=== PATIENT | female | born 1940 | race Caucasian/White ===

== ENCOUNTER 2016-06-13 06:36 | Emergency (ER) | payer MEDICARE, BC ==
[2016-06-13 06:48] VITALS: BP 113/57; PULSE 69; RESP 18; TEMP 97.4
--- NOTE | 2016-06-13 07:53 | ED ---
General Adult HPI - General Chief complaint: Wound/Laceration Stated complaint: left foot injury Time Seen by Provider: 06/13/16 07:30 Source: patient, RN notes reviewed, old records reviewed Mode of arrival: wheelchair Limitations: no limitations - History of Present Illness Initial comments: This is a 76-year-old female year for evaluation of bleeding from foot. Patient getting off top of her left foot. She states she did sustain an injury to her left foot minor laceration 2 days ago, no bleeding until she woke this morning and noticed bleeding in her bed and then it was bleeding on her floor when she was walking to the bathroom. She feels not lightheaded or dizzy not weak. No loss of consciousness. Patient not currently on blood thinners, tetanus is up-to-date - Related Data Home Medications Medication Instructions Recorded Confirmed Atorvastatin Calcium [Lipitor] 20 mg PO SUTUTHSA 07/15/14 06/13/16 Cholecalciferol [Vitamin D3] 1,000 unit PO DAILY 07/15/14 06/13/16 Furosemide [Lasix] 40 mg PO DAILY 07/15/14 06/13/16 Gabapentin [Neurontin] 300 mg PO BID 07/15/14 06/13/16 Insulin Aspart [NovoLOG] 10 - 20 unit SQ AC-TID 07/15/14 06/13/16 Meclizine [Antivert] 12.5 mg PO BID 07/15/14 06/13/16 Montelukast [Singulair] 10 mg PO DAILY 07/15/14 06/13/16 Nortriptyline HCl [Pamelor] 10 mg PO BID 07/15/14 06/13/16 [place]-3 Fatty Acids/Fish Oil [Fish 1 cap PO BID 07/15/14 06/13/16 Oil 1,000 mg Softgel] Ubidecarenone [Co Q-10] 100 mg PO SUTUTHSA 07/15/14 06/13/16 Vit A,C & E/Lutein/Minerals 1 tab PO BID 07/15/14 06/13/16 [Ocuvite with Lutein Tablet] Warfarin [Coumadin] 5 mg PO SUWE 07/15/14 06/13/16 Hydrocodone/Acetaminophen [[place] 1 tab PO Q6HR PRN 09/20/15 06/13/16 5-325] Folic Acid 0.4 mg PO DAILY 09/21/15 06/13/16 Omeprazole [PriLOSEC] 20 mg PO DAILY 09/21/15 06/13/16 Pepto-Bismol Tab 1 tab PO DAILY 09/21/15 06/13/16 Warfarin Sodium 7.5 mg PO MOTUTHFRSA 09/21/15 06/13/16 cloNIDine HCL [Clonidine HCl] 0.2 mg PO BID 09/21/15 06/13/16 cloNIDine HCL [Catapres] 0.2 mg PO BID 06/13/16 06/13/16 Allergies Allergy/AdvReac Type Severity Reaction Status Date / Time Tetanus Vaccines and Toxoid Allergy Unknown Verified 09/21/15 07:18 [Tetanus Vaccines & Toxoid] Childhood hydromorphone HCl AdvReac Hallucinati Verified 09/21/15 07:18 [From Dilaudid] ons metformin AdvReac Nausea Verified 09/21/15 07:18 Review of Systems ROS Statement: Those systems with pertinent positive or pertinent negative responses have been documented in the HPI. ROS Other: All systems not noted in ROS Statement are negative. Past Medical History Past Medical History: Chest Pain / Angina, Diabetes Mellitus, GERD/Reflux, Hyperlipidemia, Myocardial Infarction ([place]) Last Myocardial Infarction Date:: 2000 History of Any Multi-Drug Resistant Organisms: None Reported Past Surgical History: Heart Catheterization With Stent, Hysterectomy, Orthopedic Surgery, Pacemaker Additional Past Surgical History / Comment(s): knee replacements, partial thyroid removed. vein stripping on left leg, torn roatator cuff, left hand surgery Past Anesthesia/Blood Transfusion Reactions: No Reported Reaction Date of Last Stent Placement:: 2010 Type of Cardiac Device: Unknown Device Placement Date:: 2011 Past Psychological History: No Psychological Hx Reported Smoking Status: Former smoker Past Alcohol Use History: Rare Past Drug Use History: None Reported - Past Family History Sister(s) Additional Family Medical History / Comment(s): lung CA Father Family Medical History: Myocardial Infarction ([place]) Mother Family Medical History: Congestive Heart Failure (CHF) General Exam - General Exam Comments Initial Comments: Minimal bleeding from anterior left foot, upon initial ER evaluation, and is placed in bleeding had stopped Limitations: no limitations General appearance: alert, in no apparent distress Head exam: Present: atraumatic, normocephalic, normal inspection Eye exam: Present: normal appearance, PERRL, EOMI. Absent: scleral icterus, conjunctival injection, periorbital swelling ENT exam: Present: normal exam, mucous membranes moist Neck exam: Present: normal inspection. Absent: tenderness, meningismus, lymphadenopathy Respiratory exam: Present: normal lung sounds bilaterally. Absent: respiratory distress, wheezes, rales, rhonchi, stridor Cardiovascular Exam: Present: regular rate, normal rhythm, normal heart sounds. Absent: systolic murmur, diastolic murmur, rubs, gallop, clicks GI/Abdominal exam: Present: soft, normal bowel sounds. Absent: distended, tenderness, guarding, rebound, rigid Extremities exam: Present: normal inspection, full ROM, normal capillary refill. Absent: tenderness, pedal edema, joint swelling, calf tenderness Back exam: Present: normal inspection Neurological exam: Present: alert, oriented X3, CN II-XII intact Psychiatric exam: Present: normal affect, normal mood Skin exam: Present: warm, dry, intact, normal color. Absent: rash Course Vital Signs 06/13/16 06:46 Temperature 97.4 F L Pulse Rate 69 Respiratory 18 Rate Blood Pressure 113/57 O2 Sat by Pulse 94 L Oximetry Medical Decision Making - Medical Decision Making 76 female here for evaluation, patient presents here for evaluation of wound to left foot, bandages placed with no bleeding, patient can be discharged home Disposition Clinical Impression: Laceration, Unspecified open wound, left foot, initial encounter Disposition: HOME SELF-CARE Condition: Good Instructions: Acute Wound Care (ED) Referrals: Kiet Taveras MD [Primary Care Provider] - 1-2 days
== END 2016-06-13 08:42 | disposition home or self-care (01) ==
LOC: EC 06:36
DX: S91.312A Laceration without foreign body, left foot, initial encounter (principal); X58.XXXA Exposure to other specified factors, initial encounter; Z79.899 Other long term (current) drug therapy; Z79.4 Long term (current) use of insulin; Z88.5 Allergy status to narcotic agent; Z88.7 Allergy status to serum and vaccine; Z88.8 Allergy status to other drugs, medicaments and biological substances; E11.9 Type 2 diabetes mellitus without complications; K21.9 Gastro-esophageal reflux disease without esophagitis; E78.5 Hyperlipidemia, unspecified; Z87.891 Personal history of nicotine dependence
CPT/HCPCS: 99283

== ENCOUNTER 2016-12-28 09:59 | Emergency (ER) | payer MEDICARE, BC ==
[2016-12-28] MEDS ORDERED: SODIUM CHLORIDE 0.9% 1,000 ML IV STA ×2 (10:11)
--- NOTE | 2016-12-28 10:20 | ED ---
Dizziness HPI - General Chief Complaint: Dizziness Stated Complaint: Dizziness Time Seen by Provider: 12/28/16 10:00 Source: patient, EMS, RN notes reviewed Mode of arrival: EMS Limitations: no limitations - History of Present Illness Initial Comments: This is a 76-year-old female was brought in by EMS with complaints of difficulty walking feeling wobbly. She states she was eating breakfast drinking coffee when she tries get up and she felt off balance. He denies any headache fevers chills nausea vomiting sweats focal weakness. She was brought in by EMS. She on arrival demonstrated a blood pressure 95/58 MD Complaint: dizziness, difficulty walking - Related Data Home Medications Medication Instructions Recorded Confirmed Atorvastatin Calcium [Lipitor] 20 mg PO HS 07/15/14 12/28/16 Cholecalciferol [Vitamin D3] 3,000 unit PO DAILY 07/15/14 12/28/16 Furosemide [Lasix] 40 mg PO DAILY 07/15/14 12/28/16 Gabapentin [Neurontin] 300 mg PO BID 07/15/14 12/28/16 Insulin Aspart [NovoLOG] 30 unit SQ AC-TID 07/15/14 12/28/16 Meclizine [Antivert] 12.5 mg PO BID 07/15/14 12/28/16 Montelukast [Singulair] 10 mg PO DAILY 07/15/14 12/28/16 Nortriptyline HCl [Pamelor] 10 mg PO BID 07/15/14 12/28/16 [place]-3 Fatty Acids/Fish Oil [Fish 1 cap PO BID 07/15/14 12/28/16 Oil 1,000 mg Softgel] Ubidecarenone [Co Q-10] 100 mg PO DAILY 07/15/14 12/28/16 Vits A,C,E/Lutein/Minerals 1 tab PO BID 07/15/14 12/28/16 [Ocuvite with Lutein Tablet] Warfarin [Coumadin] 7.5 mg PO SUMOWETHFRSA 07/15/14 12/28/16 Hydrocodone/Acetaminophen [[place] 1 tab PO Q6HR PRN 09/20/15 12/28/16 5-325] Warfarin Sodium 10 mg PO TU 09/21/15 12/28/16 cloNIDine HCL [Catapres] 0.2 mg PO BID 06/13/16 12/28/16 Insulin Glargine [Lantus] 60 unit SQ HS 12/28/16 12/28/16 Oxybutynin Chloride [Ditropan] 5 mg PO BID 12/28/16 12/28/16 amLODIPine [Norvasc] 2.5 mg PO DAILY 12/28/16 12/28/16 Allergies Allergy/AdvReac Type Severity Reaction Status Date / Time Tetanus Vaccines and Toxoid Allergy Unknown Verified 12/28/16 10:36 [Tetanus Vaccines & Toxoid] Childhood hydromorphone HCl AdvReac Hallucinati Verified 12/28/16 10:36 [From Dilaudid] ons metformin AdvReac Nausea Verified 12/28/16 10:36 Review of Systems ROS Statement: Those systems with pertinent positive or pertinent negative responses have been documented in the HPI. ROS Other: All systems not noted in ROS Statement are negative. Past Medical History Past Medical History: Chest Pain / Angina, Diabetes Mellitus, GERD/Reflux, Hyperlipidemia, Myocardial Infarction ([place]) Additional Past Medical History / Comment(s): macular degeneration Last Myocardial Infarction Date:: 2000 History of Any Multi-Drug Resistant Organisms: None Reported Past Surgical History: Heart Catheterization With Stent, Hysterectomy, Orthopedic Surgery, Pacemaker Additional Past Surgical History / Comment(s): knee replacements, partial thyroid removed. vein stripping on left leg, torn roatator cuff, left hand surgery Past Anesthesia/Blood Transfusion Reactions: No Reported Reaction Date of Last Stent Placement:: 2010 Type of Cardiac Device: Unknown Device Placement Date:: 2011 Past Psychological History: No Psychological Hx Reported Smoking Status: Former smoker - Past Family History Sister(s) Additional Family Medical History / Comment(s): lung CA Father Family Medical History: Myocardial Infarction ([place]) Mother Family Medical History: Congestive Heart Failure (CHF) General Exam - General Exam Comments Initial Comments: This a well-developed well-nourished awake alert oriented history female Limitations: no limitations General appearance: alert, in no apparent distress Head exam: Present: atraumatic, normocephalic, normal inspection Eye exam: Present: normal appearance, PERRL, EOMI. Absent: scleral icterus, conjunctival injection, periorbital swelling ENT exam: Present: mucous membranes dry Neck exam: Present: normal inspection. Absent: tenderness, meningismus, lymphadenopathy Respiratory exam: Present: normal lung sounds bilaterally. Absent: respiratory distress, wheezes, rales, rhonchi, stridor Cardiovascular Exam: Present: regular rate, normal rhythm, normal heart sounds. Absent: systolic murmur, diastolic murmur, rubs, gallop, clicks GI/Abdominal exam: Present: soft, normal bowel sounds. Absent: distended, tenderness, guarding, rebound, rigid Extremities exam: Present: normal inspection, full ROM, normal capillary refill. Absent: tenderness, pedal edema, joint swelling, calf tenderness Back exam: Present: normal inspection Neurological exam: Present: alert, oriented X3, CN II-XII intact Psychiatric exam: Present: normal affect, normal mood Skin exam: Present: warm, dry, intact, normal color. Absent: rash Course Vital Signs 12/28/16 12/28/16 12/28/16 10:01 11:32 12:00 Temperature 97.1 F L Pulse Rate 72 49 L 68 Respiratory 20 18 18 Rate Blood Pressure 95/58 114/55 113/59 O2 Sat by Pulse 98 93 L 97 Oximetry 12/28/16 13:24 Temperature 97.0 F L Pulse Rate 57 L Respiratory 18 Rate Blood Pressure 103/53 O2 Sat by Pulse 96 Oximetry EKG Findings - EKG Results: EKG: interpreted by ERMD (Atrial paced rhythm rate was 62 [place] interval 2:30 QRS duration 102 QT/QTC of 390/[address]-T wave changes) Medical Decision Making - Medical Decision Making The patient is showing improved and ambulatory without difficulty. I did discuss findings with her and her family. Patient already is on Antivert with twice a day she'll be increased to 3 times a day. She is follow-up with her doctor and return when necessary the presentation is consistent with vertigo. - Lab Data Result diagrams: 12/28/16 10:17 12/28/16 10:17 Lab Results 12/28/16 12/28/16 12/28/16 Range/Units 10: 10: 10: WBC 4.4 (3.8-10.6) k/uL RBC 3.60 L (3.80-5.40) m/uL Hgb 11.4 (11.4-16.0) gm/dL Hct 33.8 L (34.0-46.0) % MCV 93.7 (80.0-100.0) fL MCH 31.8 (25.0-35.0) pg MCHC 33.9 (31.0-37.0) g/dL RDW 13.7 (11.5-15.5) % Plt Count 68 L (150-450) k/uL Neutrophils % 73 % Lymphocytes % 19 % Monocytes % 5 % Eosinophils % 2 % Basophils % 0 % Neutrophils # 3.2 (1.3-7.7) k/uL Lymphocytes # 0.8 L (1.0-4.8) k/uL Monocytes # 0.2 (0-1.0) k/uL Eosinophils # 0.1 (0-0.7) k/uL Basophils # 0.0 (0-0.2) k/uL Sodium 139 (137-145) mmol/L Potassium 5.1 (3.5-5.1) mmol/L Chloride 104 (98-107) mmol/L Carbon Dioxide 25 (22-30) mmol/L Anion Gap 10 mmol/L BUN 34 H (7-17) mg/dL Creatinine 1.20 H (0.52-1.04) mg/dL Est GFR (MDRD) Af Amer 53 (>60 ml/min/1.73 sqM) Est GFR (MDRD) Non-Af 44 (>60 ml/min/1.73 sqM) Glucose 54 L (74-99) mg/dL POC Glucose (mg/dL) (75-99) mg/dL POC Glu Data Miner ID Calcium 9.6 (8.4-10.2) mg/dL Magnesium 2.0 (1.6-2.3) mg/dL Total Bilirubin 1.1 (0.2-1.3) mg/dL AST 48 H (14-36) U/L ALT 43 (9-52) U/L Alkaline Phosphatase 54 (38-126) U/L Total Creatine Kinase 125 (30-135) U/L CK-MB (CK-2) 1.2 (0.0-2.4) ng/mL CK-MB (CK-2) Rel Index 1.0 Total Protein 6.7 (6.3-8.2) g/dL Albumin 4.1 (3.5-5.0) g/dL Urine Color Urine Appearance (Clear) Urine pH (5.0-8.0) Ur Specific [place] (1.001-1.035) Urine Protein (Negative) Urine Glucose (UA) (Negative) Urine Ketones (Negative) Urine Blood (Negative) Urine Nitrite (Negative) Urine Bilirubin (Negative) Urine Urobilinogen (<2.0) mg/dL Ur Leukocyte Esterase (Negative) Urine WBC (0-5) /hpf Ur Squamous Epith Cells (0-4) /hpf Urine Bacteria (None) /hpf Hyaline Casts (0-2) /lpf Urine Mucus (None) /hpf 12/28/16 12/28/16 12/28/16 Range/Units 12:08 13:27 14:00 WBC (3.8-10.6) k/uL RBC (3.80-5.40) m/uL Hgb (11.4-16.0) gm/dL Hct (34.0-46.0) % MCV (80.0-100.0) fL MCH (25.0-35.0) pg MCHC (31.0-37.0) g/dL RDW (11.5-15.5) % Plt Count (150-450) k/uL Neutrophils % % Lymphocytes % % Monocytes % % Eosinophils % % Basophils % % Neutrophils # (1.3-7.7) k/uL Lymphocytes # (1.0-4.8) k/uL Monocytes # (0-1.0) k/uL Eosinophils # (0-0.7) k/uL Basophils # (0-0.2) k/uL Sodium (137-145) mmol/L Potassium (3.5-5.1) mmol/L Chloride (98-107) mmol/L Carbon Dioxide (22-30) mmol/L Anion Gap mmol/L BUN (7-17) mg/dL Creatinine (0.52-1.04) mg/dL Est GFR (MDRD) Af Amer (>60 ml/min/1.73 sqM) Est GFR (MDRD) Non-Af (>60 ml/min/1.73 sqM) Glucose (74-99) mg/dL POC Glucose (mg/dL) 64 L 170 H (75-99) mg/dL POC Glu Data Miner Sandra Doss Nicole Calcium (8.4-10.2) mg/dL Magnesium (1.6-2.3) mg/dL Total Bilirubin (0.2-1.3) mg/dL AST (14-36) U/L ALT (9-52) U/L Alkaline Phosphatase (38-126) U/L Total Creatine Kinase (30-135) U/L CK-MB (CK-2) (0.0-2.4) ng/mL CK-MB (CK-2) Rel Index Total Protein (6.3-8.2) g/dL Albumin (3.5-5.0) g/dL Urine Color Yellow Urine Appearance Clear (Clear) Urine pH 5.5 (5.0-8.0) Ur Specific [place] 1.013 (1.001-1.035) Urine Protein Negative (Negative) Urine Glucose (UA) Negative (Negative) Urine Ketones Negative (Negative) Urine Blood Negative (Negative) Urine Nitrite Negative (Negative) Urine Bilirubin Negative (Negative) Urine Urobilinogen <2.0 (<2.0) mg/dL Ur Leukocyte Esterase Small H (Negative) Urine WBC 1 (0-5) /hpf Ur Squamous Epith Cells <1 (0-4) /hpf Urine Bacteria Rare H (None) /hpf Hyaline Casts 7 H (0-2) /lpf Urine Mucus Rare H (None) /hpf - Radiology Data Radiology results: report reviewed (I did review the imaging and reports no acute findings.), image reviewed Disposition Clinical Impression: Vertigo Disposition: HOME SELF-CARE Condition: Good Instructions: Dizziness (ED) Additional Instructions: Increase your Antivert 3 times a day and follow-up with Dr. Taveras. Referrals: Kiet Taveras MD [Primary Care Provider] - 1-2 days
[2016-12-28 10:44] LABS: Calcium 9.6 mg/dL (8.4-10.2); Total Bilirubin 1.1 mg/dL (0.2-1.3); Total Protein 6.7 g/dL (6.3-8.2)
[2016-12-28 10:46] LABS: Basophils % (A) 0 %; CHCM 33.3; Eosinophils # (A) 0.1 k/uL (0-0.7); Eosinophils % (A) 2 %; HCT 33.8 % (34.0-46.0); HDW 2.66; HGB 11.4 gm/dL (11.4-16.0); Luc # (Auto) 0.05; Luc % (Auto) 1; Lymphocytes # (A) 0.8 k/uL (1.0-4.8); Lymphocytes % (A) 19 %; MCH 31.8 pg (25.0-35.0); MCHC 33.9 g/dL (31.0-37.0); MCV 93.7 fL (80.0-100.0); Mean Platelet Volume 10.9; Monocytes # (A) 0.2 k/uL (0-1.0); Monocytes % (A) 5 %; Neutrophils # (A) 3.2 k/uL (1.3-7.7); Neutrophils % (A) 73 %; RDW 13.7 % (11.5-15.5); WBC 4.4 k/uL (3.8-10.6); WBC (Perox) 4.44
[2016-12-28 10:50] LABS: Potassium 5.1 mmol/L (3.5-5.1)
[2016-12-28 11:07] LABS: Creatine Kinase MB 1.2 ng/mL (0.0-2.4)
[2016-12-28 11:33] VITALS: RESP 18
--- NOTE | 2016-12-28 11:37 | XR ---
EXAMINATION TYPE: XR chest 2V DATE OF EXAM: 12/28/2016 COMPARISON: 09/20/2015 HISTORY: 76-year-old female with cough TECHNIQUE: PA and lateral views FINDINGS: Left anterior chest wall pacemaker generator with right atrial and right ventricular leads. The heart is upper limits of normal in size. Peribronchial cuffing and mild diffuse interstitial prominence, s imilar to prior exam. No consolidation or pleural effusion. IMPRESSION: Chronic changes, possible chronic bronchitis/asthma. No acute change seen.
[2016-12-28] MEDS ORDERED: MECLIZINE 12.5 MG TAB PO STA (12:10)
[2016-12-28 12:13] LABS: Glucose,Whole Blood 64 mg/dL (75-99)
[2016-12-28 13:25] VITALS: TEMP 97
[2016-12-28 13:30] LABS: Glucose,Whole Blood 170 mg/dL (75-99)
[2016-12-28 14:23] LABS: Appearance,Urine Clear (Clear); Bacteria,Urine Rare /hpf; Bilirubin,Urine Negative (Negative); Glucose,Urine (UA) Negative (Negative); Ketones,Urine Negative (Negative); Leukocyte Esterase,Urine Small (Negative); Mucus,Urine Rare /hpf; Nitrite,Urine Negative (Negative); PH, Urine 5.5 (5.0-8.0); Particle Count 2571; Protein,Urine Negative (Negative); Specific Gravity,Urine 1.013 (1.001-1.035); Squamous Epithelial Cell,Urine <1 /hpf (0-4); UA Billing (MACRO vs. MICRO) MICRO; Urobilinogen,Urine <2.0 mg/dL (<2.0); WBC,Urine 1 /hpf (0-5)
[2016-12-28 14:52] VITALS: BP 127/60; PULSE 67
== END 2016-12-28 14:56 | disposition home or self-care (01) ==
LOC: EC 09:59
DX: R42 Dizziness and giddiness (principal); E11.9 Type 2 diabetes mellitus without complications; E78.5 Hyperlipidemia, unspecified; I25.2 Old myocardial infarction; Z95.5 Presence of coronary angioplasty implant and graft; Z95.0 Presence of cardiac pacemaker; Z87.891 Personal history of nicotine dependence; Z79.4 Long term (current) use of insulin; Z79.01 Long term (current) use of anticoagulants; Z79.899 Other long term (current) drug therapy; Z88.7 Allergy status to serum and vaccine; Z88.5 Allergy status to narcotic agent; Z88.8 Allergy status to other drugs, medicaments and biological substances
CPT/HCPCS: 36415; 71020; 80053; 81001; 82550; 82553; 83735; 85025; 93005; 96360; 96361; 99284

== ENCOUNTER → 2017-03-01 | Outpatient (CLI) | payer MEDICARE, BC ==
--- NOTE | 2017-03-03 09:50 | MM ---
Reason for exam: screening (asymptomatic). Last mammogram was performed 2 years and 7 months ago. History: Patient is postmenopausal. Family history of breast cancer in maternal cousin at age 40. Took estrogen for 8 years beginning at age 45. Took progesterone for 8 years beginning at age 45. Physical Findings: A clinical breast exam by your physician is recommended on an annual basis and results should be correlated with mammographic findings. MG 3D Screening Mammo W/Cad Bilateral CC and MLO view(s) were taken. Prior study comparison: July 31, 2014, bilateral MG diagnostic mammo w CAD [facility]. November 12, 2013, bilateral MG screening mammo w CAD. The breast tissue is heterogeneously dense. This may lower the sensitivity of mammography. Pacemaker generator on the left breast. Scattered benign secretory, vascular and oil cysts calcifications. No significant changes when compared with prior studies. ASSESSMENT: Negative, BI-RAD 1 RECOMMENDATION: Routine screening mammogram of both breasts in 1 year.
== END | disposition home or self-care (01) ==
LOC: RADMAMWWP 11:26
PROVIDERS: ATTEND Internal Medicine Geriatric Medicine
DX: Z12.31 Encounter for screening mammogram for malignant neoplasm of breast (principal)
CPT/HCPCS: 77063; G0202

== ENCOUNTER → 2018-08-14 | Outpatient (CLI) | payer MEDICARE, BC ==
[2018-08-14 12:28] LABS: Potassium 5.3 mmol/L (3.5-5.1)
[2018-08-14 12:37] LABS: HCT 40.7 % (34.0-46.0); HGB 13.4 gm/dL (11.4-16.0); MCH 30.6 pg (25.0-35.0); MCHC 32.9 g/dL (31.0-37.0); MCV 92.9 fL (80.0-100.0); Mean Platelet Volume 9.2; Platelet Count 162 k/uL (150-450); RBC 4.38 m/uL (3.80-5.40); RDW 14.4 % (11.5-15.5); WBC 5.2 k/uL (3.8-10.6)
== END | disposition home or self-care (01) ==
LOC: LABWHC1 11:05
PROVIDERS: ATTEND Internal Medicine Interventional Cardiology
DX: Z01.812 Encounter for preprocedural laboratory examination (principal); I10 Essential (primary) hypertension; I73.9 Peripheral vascular disease, unspecified
CPT/HCPCS: 36415; 80051; 82565; 84520; 85027

== ENCOUNTER 2018-08-15 11:37 | Day surgery (SDC) | payer MEDICARE, BC ==
[2018-08-07 13:08] VITALS: BMI 36.6
[~2018-08-15 11:37] MED LIST: SODIUM CHLORIDE 0.9% 1,000 ML in EMPTY BAG 1 BAG IV ONE
[2018-08-15 12:26] LABS: Glucose,Whole Blood 259 mg/dL (75-99)
[2018-08-15] MEDS ORDERED: INSULIN ASPART (NovoLOG) 100 UNIT/ML VIAL SQ ONE (12:42)
[2018-08-15] MEDS ORDERED: MIDAZOLAM (PF) 2 MG/2 ML VIAL IV ONE (13:08)
[2018-08-15] MEDS ORDERED: LIDOCAINE 1% INJ 10MG/ML (20 ML MDV) SQ ONE (17:40)
[2018-08-15] MEDS ORDERED: fentaNYL (PF) 50 MCG/ML 2 ML AMP IV ONE (17:40)
[2018-08-15] MEDS ORDERED: MIDAZOLAM 2 MG/2 ML VIAL IV ONE (17:42)
[2018-08-15] MEDS ORDERED: IV FLUID CONTINUATION 800 ML IV ONE (17:43)
[2018-08-15] MEDS ORDERED: IOPAMIDOL-250 100ML BTL INTRAARTER ONE (17:50)
[2018-08-15] MEDS ORDERED: IOPAMIDOL-250 50ML BTL INTRAARTER ONE (17:50)
[2018-08-15] MEDS ORDERED: SODIUM CHLORIDE 0.9% 1,000 ML IV SCH (18:15)
[2018-08-15 19:57] LABS: INR 1.1 (<1.2); Prothrombin Time 11.3 sec (9.0-12.0)
[2018-08-15] MEDS ORDERED: WARFARIN 10 MG TAB PO SCH (20:00)
[2018-08-15] MEDS: NORTRIPTYLINE 10 MG CAP PO SCH (20:13)
[2018-08-15] MEDS: METOPROLOL TARTRATE 50 MG TAB PO SCH (20:13)
[2018-08-15 20:26] LABS: Glucose,Whole Blood 149 mg/dL (75-99)
[2018-08-15] MEDS ORDERED: NON-FORMULARY DRUG (Omega-3 Fatty Acids/Fish Oil [Fish Oil 1,000 Mg Softgel] 1 CAP) PO SCH (21:00)
[2018-08-15] MEDS ORDERED: ATORVASTATIN 20 MG TAB PO SCH (21:00)
[2018-08-15] MEDS ORDERED: GABAPENTIN 300 MG CAP PO SCH (21:00)
[2018-08-15] MEDS: INSULIN ASPART (NovoLOG) 100 UNIT/ML VIAL SQ SCH (21:16)
--- NOTE | 2018-08-15 21:58 | LTR ---
DATE OF SERVICE: August 15, 2018. Dear Dr. Taveras: Ms. Rebecca Abreu was experiencing bilateral lower extremities per intermittent claudication and underwent an abdominal aortogram and bilateral lower extremities runoff which revealed severe disease involving bilateral femoral arteries. She is going to be discharged home today and she will be scheduled to undergo a WINDING MACHINE OPERATOR of right and left SFA. I want to thank you for allowing us to participate in her care and please do not hesitate to call if you have any question or concerns. Sincerely, MD ASHLEY Keating / JAVIER: [id number] /
--- NOTE | 2018-08-15 23:16 | AN ---
ANGIOGRAPHY REPORT DATE OF SERVICE: August 15, 2018 PERFORMING PHYSICIAN: Jack Black MD, experimental mechanic. PROCEDURE PERFORMED: 1. An abdominal aortogram. 2. Bilateral lower extremities runoff. INDICATION: This is a 78-year-old female patient with history of hypertension and dyslipidemia who was experiencing bilateral lower extremity intermittent claudication, severe enough and interfering with her daily activities. Because of that an abdominal aortogram and bilateral lower extremity runoff was advised. APPROACH: Left common femoral artery. COMPLICATION: None. LEVEL OF SEDATION: Moderate with sedation length of 12 minutes. PROCEDURE DESCRIPTION: After obtaining an informed consent, the patient was brought to the cardiac labor relations director. The left common femoral artery was cannulated using micropuncture technique, the micropuncture wire passed easily then I placed a 5-Kazakh sheath in the left common femoral artery. After that, I did an abdominal aortogram and bilateral lower extremity runoff using 5- Kazakh pigtail catheter which was initially placed at the level of the renal arteries then it was pulled into above the bifurcation of the aorta to right and left common iliac arteries. The procedure was completed without any complication. SELECTIVE PERIPHERAL ANGIOGRAM: 1. The aorta appeared to be calcified with mild disease only. 2. Common iliac arteries are calcified with mild disease only. 3. Internal iliac arteries: The right and left internal iliac arteries are patent. 4. External iliac arteries: The right and left external iliac arteries are normal. 5. Common femoral arteries: The right and left common femoral arteries are patent. 6. Profunda: Both profunda are patent. 7. SFA: Both SFA appeared to be severely diseased in the range of 70-80 percent in the midportion. 8. Popliteal: The right popliteal has a tight lesion appeared to be in the range of 80% and the left popliteal appeared to have mild disease only. 9. Below the knee: There are 2 vessel runoff below the knee with posterior tibial and peroneal. CONCLUSION: 1. Tortuous aortoiliac segments without any obstructive disease. 2. 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 3. Two vessel runoff below the knee bilaterally with posterior tibial and peroneal. POSTPROCEDURE MANAGEMENT: Atherectomy and [place] PREP TEACHER of the right and left SFA to be done in 2 separate sessions. I would consider the procedure to be performed in ipsilateral antegrade technique. MMODL / IJN: [id number] /
[2018-08-16 06:47] LABS: Glucose,Whole Blood 246 mg/dL (75-99)
[2018-08-16 07:49] VITALS: BP 151/65; PULSE 55; RESP 18; TEMP 97.9
[2018-08-16] MEDS: INSULIN ASPART (NovoLOG) 100 UNIT/ML VIAL SQ SCH (07:57)
[2018-08-16] MEDS: NORTRIPTYLINE 10 MG CAP PO SCH (07:58)
[2018-08-16] MEDS: METOPROLOL TARTRATE 50 MG TAB PO SCH (07:58)
--- NOTE | 2018-08-16 08:12 | DS ---
DISCHARGE SUMMARY ADMISSION DATE: August 15, 2018 DISCHARGE DATE: August 16, 2018 BRIEF HISTORY: This is a 78-year-old female patient who was admitted to the hospital yesterday and underwent an abdominal aortogram and bilateral lower extremities runoff, which revealed severe bilateral SFA disease. The patient was kept overnight because the procedure was performed late during the day. She is going to be discharged home. ASHLEY / JAVIER: [id number] /
[2018-08-16] MEDS ORDERED: MONTELUKAST 10 MG TAB PO SCH (09:00)
[2018-08-16] MEDS ORDERED: ISOSORBIDE MONONITRATE ER 30 MG TAB.ER.24H PO SCH (09:00)
--- NOTE | 2018-08-16 09:22 | IR ---
Fluoroscopy HISTORY: Peripheral vascular occlusive disease 1.8 minutes fluoroscopy time supplied to the referring clinician. 109 intraoperative C-arm images do cument the procedure. See dictated report from cardiology.
[2018-08-16 09:48] LABS: Prothrombin Time 10.8 sec (9.0-12.0)
[2018-08-19] MEDS ORDERED: WARFARIN 7.5 MG TAB PO SCH (18:00)
== END 2018-08-16 10:15 | disposition home or self-care (01) ==
LOC: CATHCVL 11:37 → 1SOBS 17:52 → CATHCVL 08-16 10:15
PROVIDERS: ATTEND Internal Medicine Interventional Cardiology
DX: I70.213 Atherosclerosis of native arteries of extremities with intermittent claudication, bilateral legs (principal); I70.0 Atherosclerosis of aorta; I77.1 Stricture of artery; I10 Essential (primary) hypertension; I25.10 Atherosclerotic heart disease of native coronary artery without angina pectoris; Z95.5 Presence of coronary angioplasty implant and graft; E78.5 Hyperlipidemia, unspecified; I48.0 Paroxysmal atrial fibrillation; Z72.0 Tobacco use; Z82.49 Family history of ischemic heart disease and other diseases of the circulatory system; E13.51 Other specified diabetes mellitus with diabetic peripheral angiopathy without gangrene; Z79.4 Long term (current) use of insulin; Z79.899 Other long term (current) drug therapy; Z79.01 Long term (current) use of anticoagulants; Z88.5 Allergy status to narcotic agent; Z88.7 Allergy status to serum and vaccine; Z88.8 Allergy status to other drugs, medicaments and biological substances; Z95.0 Presence of cardiac pacemaker
CPT/HCPCS: 36200; 75625; 75716; 85610 ×2; C1760; C1769 ×5; C1894; J2250 ×2; J2001; J3010; Q9966 ×2

== ENCOUNTER 2018-09-26 10:19 | Day surgery (SDC) | payer MEDICARE, BC ==
[2018-09-25 10:25] VITALS: BMI 36.6
[~2018-09-26 10:19] MED LIST changes: +ALPRAZolam 0.25 MG TAB PO PRN; +ASPIRIN 325 MG TAB PO STA
[2018-09-26] MEDS ORDERED: INSULIN ASPART (NovoLOG) 100 UNIT/ML VIAL SQ ONE (10:45)
[2018-09-26 10:58] LABS: Glucose,Whole Blood 216 mg/dL (75-99)
[2018-09-26 11:29] LABS: Basophils % (A) 1 %; Eosinophils # (A) 0.2 k/uL (0-0.7); Eosinophils % (A) 3 %; HCT 36.9 % (34.0-46.0); HGB 11.8 gm/dL (11.4-16.0); Lymphocytes # (A) 1.1 k/uL (1.0-4.8); Lymphocytes % (A) 22 %; MCH 30.1 pg (25.0-35.0); MCV 93.9 fL (80.0-100.0); Mean Platelet Volume 8.7; Monocytes # (A) 0.4 k/uL (0-1.0); Monocytes % (A) 8 %; Neutrophils # (A) 3.2 k/uL (1.3-7.7); Neutrophils % (A) 64 %; Platelet Count 152 k/uL (150-450); RBC 3.93 m/uL (3.80-5.40); RDW 14.4 % (11.5-15.5)
[2018-09-26 11:36] LABS: INR 1.1 (<1.2); Prothrombin Time 11.6 sec (9.0-12.0)
[2018-09-26 11:39] LABS: Potassium 4.6 mmol/L (3.5-5.1)
[2018-09-26] MEDS ORDERED: MIDAZOLAM (PF) 2 MG/2 ML VIAL IV ONE ×2 (13:30→14:41)
[2018-09-26] MEDS ORDERED: LIDOCAINE 1% INJ 10MG/ML (20 ML MDV) SQ ONE (13:32)
[2018-09-26] MEDS ORDERED: fentaNYL (PF) 50 MCG/ML 2 ML AMP IV ONE (13:51)
[2018-09-26] MEDS ORDERED: HYDROmorphone 1 MG/ML 1 ML SYRINGE IVP ONE ×3 (14:13→15:33)
[2018-09-26] MEDS ORDERED: HEPARIN SODIUM 1,000 UN/ML (10ML VL) IV ONE (14:26)
[2018-09-26] MEDS ORDERED: CLOPIDOGREL 75 MG TAB ONE (15:08)
[2018-09-26] MEDS ORDERED: CLOPIDOGREL 75 MG TAB PO ONE (15:15)
[2018-09-26] MEDS ORDERED: niCARdipine Syringe (1,000 mcg/10 mL) INTRAARTER ONE (15:16)
[2018-09-26] MEDS ORDERED: PROTAMINE SULFATE 10 MG/ML 5 ML VIAL IV ONE (15:32)
[2018-09-26] MEDS ORDERED: POLYETHYLENE GLYCOL 3350 17 GM POWD.PACK PO PRN (15:50)
[2018-09-26] MEDS ORDERED: SODIUM CHLORIDE 0.9% 1,000 ML IV SCH (16:00)
--- NOTE | 2018-09-26 16:28 | IR ---
Fluoroscopy HISTORY: Peripheral vascular disease 26.1 minutes fluoroscopy time supplied to the referring clinician. 574 intraoperative C-arm images d ocument the procedure. See dictated report from cardiology.
[2018-09-26 17:47] LABS: Glucose,Whole Blood 155 mg/dL (75-99)
[2018-09-26] MEDS: ACETAMINOPHEN TAB 500 MG TAB PO PRN (20:29)
[2018-09-26] MEDS: METOPROLOL TARTRATE 50 MG TAB PO SCH (20:30)
[2018-09-26] MEDS: GABAPENTIN 300 MG CAP PO SCH (20:30)
[2018-09-26] MEDS: NORTRIPTYLINE 10 MG CAP PO SCH (20:32)
[2018-09-26] MEDS ORDERED: NON-FORMULARY DRUG (Omega-3 Fatty Acids/Fish Oil [Fish Oil 1,000 Mg Softgel] 1 CAP) PO SCH (21:00)
[2018-09-26] MEDS ORDERED: ATORVASTATIN 20 MG TAB PO SCH (21:00)
[2018-09-26 21:57] LABS: Glucose,Whole Blood 150 mg/dL (75-99)
[2018-09-27] MEDS: ACETAMINOPHEN TAB 500 MG TAB PO PRN (04:22)
[2018-09-27 06:10] LABS: Glucose,Whole Blood 287 mg/dL (75-99)
[2018-09-27 06:18] LABS: Basophils % (A) 1 %; Eosinophils # (A) 0.2 k/uL (0-0.7); Eosinophils % (A) 4 %; HCT 32.7 % (34.0-46.0); HGB 10.7 gm/dL (11.4-16.0); Lymphocytes # (A) 0.3 k/uL (1.0-4.8); Lymphocytes % (A) 7 %; MCH 31.1 pg (25.0-35.0); MCHC 32.9 g/dL (31.0-37.0); MCV 94.5 fL (80.0-100.0); Mean Platelet Volume 8.5; Monocytes # (A) 0.3 k/uL (0-1.0); Monocytes % (A) 7 %; Neutrophils # (A) 3.2 k/uL (1.3-7.7); Neutrophils % (A) 80 %; Platelet Count 112 k/uL (150-450); RBC 3.46 m/uL (3.80-5.40); RDW 14.7 % (11.5-15.5)
[2018-09-27 06:21] LABS: Calcium 9.3 mg/dL (8.4-10.2); Potassium 4.5 mmol/L (3.5-5.1)
--- NOTE | 2018-09-27 08:16 | AN ---
ANGIOGRAPHY REPORT DATE OF SERVICE: September 26, 2018 PERFORMING PHYSICIAN: Jack Black MD. PROCEDURE PERFORMED: 1. Selective right [id number]-[id number] angiogram. 2. Selective right SFA angiogram. 3. Atherectomy of the right SFA using the orbital atherectomy device from Sanaexpert using 1.5 mm ana. 4. Balloon angioplasty of the right SFA. 5. Successful stenting of the right SFA using 6 x 120 mm Zilver PTX drug-coated stent with an excellent angiographic result. INDICATION: This is a 78-year-old female patient who was experiencing bilateral lower extremity intermittent claudication and underwent a peripheral angiogram and that revealed severe bilateral SFA. She was brought today to undergo a OFFICE MACHINE SERVICER of the right SFA. APPROACH: 1. Left common femoral artery. 2. Right common femoral artery. COMPLICATION: None. LEVEL OF SEDATION: Moderate with sedation length of 2 hours. PROCEDURE DESCRIPTION: After obtaining informed consent, the patient was brought to the cardiac oil laboratory analyst. I accessed the left common femoral artery using micropuncture technique, I advanced the micropuncture wire then I placed a 6-Croatian sheath in the left common femoral artery. After multiple attempts to go up and over I was unable to because of tortuous aortoiliac. Because of that, I decided to go in ipsilateral antegrade technique. At that point I accessed the right common femoral artery using micropuncture technique and a micropuncture wire was advanced to the right SFA then I placed initially a micropuncture sheath over the micropuncture wire. Then, the micropuncture sheath was exchanged over an 0.035 Galva Advantage wire into a 55 cm 6-Croatian Raabe the sheath. At that point, I did start anticoagulation with heparin and the patient was given 10,000 units of heparin IV. I did after that selective right [id number] angiogram and selective right SFA angiogram. After that, I did wire the lesion using 2 ViperWire. After that I did atherectomy using the orbital atherectomy device from Sanaexpert at 1.5 ana. Then I did balloon angioplasty initially using 4.0 mm and then 5 mm drug-coated balloon but subsequently there was a dissection which seems to be extensive. Because of that, I decided to cover that with a stent. So I did deploy 6 x 120 mm Zilver PTX drug-coated stent where the stent was positioned under fluoroscopy guidance and deployed under fluoroscopy guidance. I post dilated the stent using 5 mm balloon. The procedure was completed without any complication. After that I attempted exchanging the sheath to a shorter one, but the sheath will not make the turn over the 0.035 wire and because of that, I decided to pull everything and do manual pressure on the right groin. The procedure was completed without any complication. POSTPROCEDURE MANAGEMENT: 1. Dual antiplatelet therapy. 2. Risk factor modifications. 3. Follow up with the patient. ASHLEY / CHIN: [id number] /
[2018-09-27] MEDS ORDERED: MONTELUKAST 10 MG TAB PO SCH (09:00)
[2018-09-27] MEDS ORDERED: CLOPIDOGREL 75 MG TAB PO SCH (09:00)
[2018-09-27] MEDS ORDERED: ISOSORBIDE MONONITRATE ER 30 MG TAB.ER.24H PO SCH (09:00)
[2018-09-27] MEDS ORDERED: ASPIRIN 81 MG PO SCH (09:00)
[2018-09-27] MEDS: METOPROLOL TARTRATE 50 MG TAB PO SCH (09:26)
[2018-09-27] MEDS: GABAPENTIN 300 MG CAP PO SCH (09:27)
[2018-09-27] MEDS: NORTRIPTYLINE 10 MG CAP PO SCH (09:28)
[2018-09-27 10:52] VITALS: BP 134/60; PULSE 54; RESP 16; TEMP 96.1
--- NOTE | 2018-09-27 13:25 | DS ---
DISCHARGE SUMMARY DATE OF ADMISSION: September 26, 2018 DATE OF DISCHARGE: September 27, 2018 BRIEF HISTORY: This is a 78-year-old female patient who was admitted to the hospital yesterday and underwent successful and angioplasty of the right SFA with good angiographic results and without any complication. The patient is going to be discharged home on dual antiplatelet therapy and as well as statin. She is also on Coumadin. I will follow up with the patient in a week in the office. [id number] / CHIN: [id number] /
== END 2018-09-27 10:45 | disposition home or self-care (01) ==
LOC: CATHCVL 10:19 → 3SCARD 15:39 → CATHCVL 09-27 10:45
PROVIDERS: ATTEND Internal Medicine Interventional Cardiology
DX: E11.51 Type 2 diabetes mellitus with diabetic peripheral angiopathy without gangrene (principal); I70.213 Atherosclerosis of native arteries of extremities with intermittent claudication, bilateral legs; I25.10 Atherosclerotic heart disease of native coronary artery without angina pectoris; I48.0 Paroxysmal atrial fibrillation; I10 Essential (primary) hypertension; E78.5 Hyperlipidemia, unspecified; Z88.5 Allergy status to narcotic agent; Z88.8 Allergy status to other drugs, medicaments and biological substances; Z88.7 Allergy status to serum and vaccine; Z79.899 Other long term (current) drug therapy; Z79.01 Long term (current) use of anticoagulants; Z82.49 Family history of ischemic heart disease and other diseases of the circulatory system; Z79.4 Long term (current) use of insulin; Z95.5 Presence of coronary angioplasty implant and graft; Z95.0 Presence of cardiac pacemaker; Z72.0 Tobacco use
CPT/HCPCS: 37227; 80048 ×2; 85025 ×2; 85610; 83036; C1894 ×4; C1769 ×7; C1714; C2623; C1874; C1725; J2720; J2001; J3010; J1644; J1170; J2250

== ENCOUNTER 2018-11-22 14:24 | Emergency (ER) | payer MEDICARE, BC ==
[2018-11-22 14:33] VITALS: RESP 18
--- NOTE | 2018-11-22 14:47 | ED ---
Chest Pain HPI - General Chief Complaint: Chest Pain Stated Complaint: Chest pain Time Seen by Provider: 11/22/18 14:35 Source: patient, RN notes reviewed Mode of arrival: wheelchair Limitations: no limitations - History of Present Illness Initial Comments: This is a 77-year-old female history of peripheral vascular disease heart disease and multiple other medical problems who presents with complaints of several days of intermittent episodes of left-sided chest pain. She states describes it as a squiggly comes on intermittently and points to below her left breast. She did stop at [facility] and was told come here as it may be secondary to her pacemaker malfunctioning. She denies any fevers chills nausea vomiting sweats palpitations or other symptoms she does admit that she's been doing a lot of cleaning and physical activity of late. No other complaints or medical problems no other modifying factors at this time MD Complaint: chest pain - Related Data Home Medications Medication Instructions Recorded Confirmed Atorvastatin Calcium [Lipitor] 20 mg PO SUMOTUTHFRSA 07/15/14 11/22/18 Montelukast [Singulair] 10 mg PO DAILY 07/15/14 11/22/18 Nortriptyline HCl [Pamelor] 10 mg PO BID 07/15/14 11/22/18 [place]-3 Fatty Acids/Fish Oil [Fish 1 cap PO BID 07/15/14 11/22/18 Oil 1,000 mg Softgel] Warfarin [Coumadin] 7.5 mg PO SUTH 07/15/14 11/22/18 Warfarin Sodium 10 mg PO MOTUWEFRSA 09/21/15 11/22/18 Isosorbide Mononitrate [Isosorbide 30 mg PO DAILY 08/07/18 11/22/18 Mononitrate ER] Metoprolol Tartrate [Lopressor] 50 mg PO BID 08/07/18 11/22/18 metFORMIN HCL 1,000 mg PO BID 08/07/18 11/22/18 Insulin NPH Hum/Reg Insulin Hm 20 - 25 unit SQ HS 09/25/18 11/22/18 [NovoLIN 70-30 100 UNIT/ML VIAL] Insulin NPH Hum/Reg Insulin Hm 50 - 60 unit SQ QAM 09/25/18 11/22/18 [NovoLIN 70-30 100 UNIT/ML VIAL] Biotin 5 mg PO DAILY 11/22/18 11/22/18 Cholecalciferol [Vitamin D3 (25 1,000 unit PO DAILY 11/22/18 11/22/18 Mcg = 1000 Iu)] Gabapentin [Neurontin] 100 mg PO BID 11/22/18 11/22/18 Meclizine [Antivert] 12.5 mg PO DAILY 11/22/18 11/22/18 Ubidecarenone [Co Q-10] 100 mg PO DAILY 11/22/18 11/22/18 Vits A,C,E/Lutein/Minerals 1 tab PO DAILY 11/22/18 11/22/18 [Ocuvite with Lutein Tablet] Previous Rx's Medication Instructions Recorded Clopidogrel [Plavix] 75 mg PO DAILY #90 tab 09/27/18 Allergies Allergy/AdvReac Type Severity Reaction Status Date / Time Tetanus Vaccines and Toxoid Allergy Unknown Verified 11/22/18 15:06 [Tetanus Vaccines & Toxoid] Childhood hydromorphone HCl AdvReac Hallucinati Verified 11/22/18 15:06 [From Dilaudid] ons Review of Systems ROS Statement: Those systems with pertinent positive or pertinent negative responses have been documented in the HPI. ROS Other: All systems not noted in ROS Statement are negative. EKG Findings - EKG Results: EKG: interpreted by ERMD (Atrial paced rhythm of 51. Interval 208 QRS duration 150 to QT since QTC 448/412) Past Medical History Past Medical History: Chest Pain / Angina, CVA/TIA, Diabetes Mellitus, Eye Disorder, GERD/Reflux, Hearing Disorder / Deafness, Hyperlipidemia, Hypertension, Myocardial Infarction ([place]), Osteoarthritis (OA), Vascular Disorder Additional Past Medical History / Comment(s): TIA @age of 49-no residual effects, macular degeneration, incont of urine Last Myocardial Infarction Date:: History of Any Multi-Drug Resistant Organisms: None Reported Past Surgical History: Heart Catheterization With Stent, Hysterectomy, Joint Replacement, Orthopedic Surgery, Pacemaker Additional Past Surgical History / Comment(s): BILAT knee replacements, partial thyroid removed. vein stripping on left leg, LT torn ROTATOR cuff REPAIR, left hand surgery, surgery to repair ruptured artery during heart cath., recent aortogram Past Anesthesia/Blood Transfusion Reactions: No Reported Reaction Date of Last Stent Placement:: 2010 Type of Cardiac Device: Biventricular Pacemaker Device Placement Date:: 2011 Past Psychological History: No Psychological Hx Reported Smoking Status: Former smoker Past Alcohol Use History: None Reported Past Drug Use History: None Reported - Past Family History Sister(s) Family Medical History: Cancer Additional Family Medical History / Comment(s): lung CA Father Family Medical History: Myocardial Infarction ([place]) Mother Family Medical History: Congestive Heart Failure (CHF) General Exam - General Exam Comments Initial Comments: This is a well-developed molars awake alert oriented x 3 female Limitations: no limitations General appearance: alert, in no apparent distress Head exam: Present: atraumatic, normocephalic, normal inspection Eye exam: Present: normal appearance, PERRL, EOMI. Absent: scleral icterus, conjunctival injection, periorbital swelling ENT exam: Present: normal exam, mucous membranes moist Neck exam: Present: normal inspection. Absent: tenderness, meningismus, lymphadenopathy Respiratory exam: Present: normal lung sounds bilaterally, chest wall tenderness (Reproducible tenderness palpation along the lower costal sternal costochondral margin. Palpation does reproduce patient's pain. No step-off or crepitation.). Absent: respiratory distress, wheezes, rales, rhonchi, stridor Cardiovascular Exam: Present: regular rate, normal rhythm, normal heart sounds. Absent: systolic murmur, diastolic murmur, rubs, gallop, clicks GI/Abdominal exam: Present: soft, normal bowel sounds. Absent: distended, tenderness, guarding, rebound, rigid Extremities exam: Present: normal inspection, full ROM, normal capillary refill. Absent: tenderness, pedal edema, joint swelling, calf tenderness Back exam: Present: normal inspection Neurological exam: Present: alert, oriented X3, CN II-XII intact Psychiatric exam: Present: normal affect, normal mood Skin exam: Present: warm, dry, intact, normal color. Absent: rash Course Vital Signs 11/22/18 14:28 Temperature 97.9 F Pulse Rate 86 Respiratory 18 Rate Blood Pressure 139/78 O2 Sat by Pulse 98 Oximetry Chest Pain MDM - MDM I did review the imaging and report no acute findings. I did discuss the findings with patient family members. The presentation is consistent with chest wall pain/costochondritis. Patient will be discharged with follow-up with her doctor as planned and return when necessary Disposition Clinical Impression: Chest wall syndrome, Costalchondritis Disposition: HOME SELF-CARE Condition: Good Instructions (If sedation given, give patient instructions): Costochondritis (ED) Additional Instructions: Tylenol for pain Is patient prescribed a controlled substance at d/c from ED?: No Referrals: Kiet Taveras MD [Primary Care Provider] - 1-2 days
[2018-11-22 15:17] LABS: Basophils % (A) 1 %; Eosinophils # (A) 0.2 k/uL (0-0.7); Eosinophils % (A) 3 %; HCT 38.6 % (34.0-46.0); HGB 12.3 gm/dL (11.4-16.0); Lymphocytes # (A) 1.2 k/uL (1.0-4.8); Lymphocytes % (A) 22 %; MCH 29.5 pg (25.0-35.0); MCHC 31.8 g/dL (31.0-37.0); MCV 92.7 fL (80.0-100.0); Mean Platelet Volume 8.5; Monocytes # (A) 0.4 k/uL (0-1.0); Monocytes % (A) 8 %; Neutrophils # (A) 3.5 k/uL (1.3-7.7); Neutrophils % (A) 63 %; RBC 4.16 m/uL (3.80-5.40); RDW 14.1 % (11.5-15.5); WBC 5.6 k/uL (3.8-10.6)
[2018-11-22 15:24] LABS: Platelet Count 174 k/uL (150-450)
[2018-11-22 15:25] LABS: Albumin 4.4 g/dL (3.5-5.0); Calcium 9.8 mg/dL (8.4-10.2); Magnesium 1.8 mg/dL (1.6-2.3); Potassium 4.8 mmol/L (3.5-5.1); Total Bilirubin 0.5 mg/dL (0.2-1.3); Total Protein 6.9 g/dL (6.3-8.2)
[2018-11-22 15:28] LABS: INR 1.1 (<1.2); Partial Thromboplastin Time 26.7 sec (22.0-30.0); Prothrombin Time 11.7 sec (9.0-12.0)
--- NOTE | 2018-11-22 15:54 | XR ---
EXAMINATION TYPE: XR chest 2V DATE OF EXAM: 11/22/2018 COMPARISON: 12/28/2016 INDICATION: Left-sided intermittent chest pain TECHNIQUE: Frontal and lateral views of the chest are obtained. FINDINGS: The heart size is normal. The pulmonary vasculature is normal. The lungs are clear. This make overlies left chest IMPRESSION: 1. No acute pulmonary process.
[2018-11-22 16:38] VITALS: BP 122/56; PULSE 50; TEMP 98
== END 2018-11-22 16:37 | disposition home or self-care (01) ==
LOC: EC 14:24
DX: M94.0 Chondrocostal junction syndrome [Tietze] (principal); E11.9 Type 2 diabetes mellitus without complications; K21.9 Gastro-esophageal reflux disease without esophagitis; E78.5 Hyperlipidemia, unspecified; I10 Essential (primary) hypertension; I25.2 Old myocardial infarction; M19.90 Unspecified osteoarthritis, unspecified site; H91.90 Unspecified hearing loss, unspecified ear; Z86.73 Personal history of transient ischemic attack (TIA), and cerebral infarction without residual deficits; Z87.891 Personal history of nicotine dependence; Z79.01 Long term (current) use of anticoagulants; Z79.4 Long term (current) use of insulin; Z79.899 Other long term (current) drug therapy; Z88.5 Allergy status to narcotic agent; Z88.7 Allergy status to serum and vaccine; Z95.5 Presence of coronary angioplasty implant and graft; Z95.0 Presence of cardiac pacemaker; Z96.653 Presence of artificial knee joint, bilateral
CPT/HCPCS: 36415; 71046; 80053; 83690; 83735; 83880; 84484; 85025; 85610; 85730; 93005; 99285

== ENCOUNTER 2018-11-28 09:01 | Day surgery (SDC) | payer MEDICARE, BC ==
[2018-11-27 12:29] VITALS: BMI 35.3
[~2018-11-28 09:01] MED LIST changes: -SODIUM CHLORIDE 0.9% 1,000 ML in EMPTY BAG 1 BAG IV ONE
[2018-11-28] MEDS: SODIUM CHLORIDE 0.9% 1,000 ML in EMPTY BAG 1 BAG IV ONE ×2 (09:20→09:49)
[2018-11-28] MEDS ORDERED: CLOPIDOGREL 75 MG TAB PO STA (09:20)
[2018-11-28 09:41] LABS: Glucose,Whole Blood 124 mg/dL (75-99)
[2018-11-28 09:50] LABS: Basophils % (A) 1 %; Eosinophils # (A) 0.1 k/uL (0-0.7); Eosinophils % (A) 2 %; HCT 37.1 % (34.0-46.0); HGB 12.3 gm/dL (11.4-16.0); Lymphocytes # (A) 1.3 k/uL (1.0-4.8); Lymphocytes % (A) 22 %; MCH 30.5 pg (25.0-35.0); MCHC 33.2 g/dL (31.0-37.0); MCV 91.9 fL (80.0-100.0); Mean Platelet Volume 8.3; Monocytes # (A) 0.4 k/uL (0-1.0); Monocytes % (A) 8 %; Neutrophils # (A) 3.8 k/uL (1.3-7.7); Neutrophils % (A) 65 %; Platelet Count 158 k/uL (150-450); RBC 4.04 m/uL (3.80-5.40); RDW 14.8 % (11.5-15.5); WBC 5.8 k/uL (3.8-10.6)
[2018-11-28 10:08] LABS: Calcium 10.1 mg/dL (8.4-10.2); Potassium 4.4 mmol/L (3.5-5.1)
[2018-11-28] MEDS ORDERED: MIDAZOLAM (PF) 2 MG/2 ML VIAL IV ONE (11:04)
[2018-11-28] MEDS ORDERED: MIDAZOLAM (PF) 2 MG/2 ML VIAL IVP ONE (11:18)
[2018-11-28] MEDS ORDERED: LIDOCAINE 1% INJ 10MG/ML (20 ML MDV) SQ ONE (11:20)
[2018-11-28] MEDS ORDERED: fentaNYL (PF) 50 MCG/ML 2 ML AMP IVP ONE (11:30)
[2018-11-28] MEDS ORDERED: HEPARIN SODIUM 1,000 UN/ML (10ML VL) IV ONE (11:39)
[2018-11-28] MEDS ORDERED: SODIUM CHLORIDE 0.9% 1,000 ML IV SCH (12:15)
[2018-11-28] MEDS ORDERED: IOPAMIDOL-250 50ML BTL IV ONE (12:17)
[2018-11-28 16:53] LABS: Glucose,Whole Blood 76 mg/dL (75-99)
[2018-11-28] MEDS: METOPROLOL TARTRATE 50 MG TAB PO SCH (20:07)
[2018-11-28] MEDS: NORTRIPTYLINE 10 MG CAP PO SCH (20:07)
[2018-11-28] MEDS ORDERED: NON-FORMULARY DRUG (Omega-3 Fatty Acids/Fish Oil [Fish Oil 1,000 Mg Softgel] 1 CAP) PO SCH (21:00)
[2018-11-28] MEDS ORDERED: GABAPENTIN 100 MG CAP PO SCH (21:00)
[2018-11-28 21:34] LABS: Glucose,Whole Blood 200 mg/dL (75-99)
[2018-11-28] MEDS ORDERED: ACETAMINOPHEN TAB 500 MG TAB PO PRN (23:31)
[2018-11-28] MEDS ORDERED: amLODIPine 5 MG TAB PO STA (23:32)
--- NOTE | 2018-11-28 23:41 | PCN ---
PROCEDURE NOTE DATE OF SERVICE: 11/28/2018 PERFORMING PHYSICIAN: Jack Black MD, commercial energy rater. PROCEDURES PERFORMED: 1. Selective left SFA and left [id number]-ptib angiogram. 2. Intravascular ultrasound (IVUS) of the left SFA. 3. Atherectomy of the left SFA using the TurboHawk device with extraction of plaque from the left SFA. 4. Successful balloon angioplasty of the left SFA using 6 x mm drug-coated balloon with excellent angiographic results and reduction of stenosis from 70% to 0%. INDICATION: This is a 78-year-old female patient who was experiencing symptoms of bilateral lower extremity intermittent claudication and underwent a peripheral angiogram which revealed severe bilateral SFA disease. She underwent TILE FITTER of the right SFA and she was brought today to undergo TILE FITTER of the left SFA. APPROACH: Left common femoral artery in antegrade technique. COMPLICATIONS: None. LEVEL OF SEDATION: Moderate, with sedation length of 54 minutes. PROCEDURE DESCRIPTION: After obtaining informed consent, the patient was brought to the cardiac mobile lab technician. The left common femoral artery was cannulated using micropuncture technique. The micropuncture wire passed easily and advanced to the left SFA. After that, I did place a 6-Italian 70 cm Raabe sheath in the left SFA. The sheath was positioned in the proximal left SFA. I did wire the SFA using the [place] ST wire. After that I did selective left rudig-ajm-flos angiogram and selective left SFA angiogram. The angiogram revealed 2-vessel runoff below the knee with intermediate to severe lesion involving the mid left SFA. I did intravascular ultrasound which confirmed that the lesion was hemodynamically significant and above 70%. At that point I did atherectomy using the TurboHawk device. I did balloon angioplasty using 6 x 40 mm drug-coated balloon where the balloon was inflated under 6 atmospheres for 3 minutes. The final angiogram showed good results and the procedure was completed without any complication. After that I did exchange my long sheath for a short sheath. The procedure was completed without any complication. POST-PROCEDURE MANAGEMENT: 1. Dual anti-platelet therapy. 2. Risk factor modifications. 3. Follow up with the patient. MMODL / IJN: [id number] /
[2018-11-29 05:24] VITALS: RESP 18
[2018-11-29 06:20] LABS: Glucose,Whole Blood 198 mg/dL (75-99)
[2018-11-29 07:05] LABS: Basophils % (A) 1 %; Eosinophils # (A) 0.2 k/uL (0-0.7); Eosinophils % (A) 4 %; Lymphocytes # (A) 0.8 k/uL (1.0-4.8); Lymphocytes % (A) 17 %; MCH 30.3 pg (25.0-35.0); MCHC 32.5 g/dL (31.0-37.0); MCV 93.2 fL (80.0-100.0); Mean Platelet Volume 8.4; Monocytes # (A) 0.3 k/uL (0-1.0); Monocytes % (A) 7 %; Neutrophils # (A) 3.2 k/uL (1.3-7.7); Neutrophils % (A) 70 %; Platelet Count 142 k/uL (150-450); RBC 3.97 m/uL (3.80-5.40); WBC 4.6 k/uL (3.8-10.6)
[2018-11-29 07:16] LABS: Calcium 9.9 mg/dL (8.4-10.2); Potassium 4.7 mmol/L (3.5-5.1)
[2018-11-29] MEDS: NORTRIPTYLINE 10 MG CAP PO SCH (08:33)
[2018-11-29] MEDS: METOPROLOL TARTRATE 50 MG TAB PO SCH (08:33)
[2018-11-29 08:54] VITALS: BP 145/54; PULSE 60; TEMP 98.2
--- NOTE | 2018-11-29 08:54 | DS ---
DISCHARGE SUMMARY ADMISSION DATE: DISCHARGE DATE: 11/29/2018 BRIEF HISTORY: This is a 78-year-old female patient who underwent yesterday successful atherectomy and balloon angioplasty of the left SFA with good angiographic results and without any complication from left groin approach. On followup with her today, the left groin is soft and nontender and without any bruises. The patient is going to be discharged on dual anti-platelet therapy as well as statin. I will follow up with the patient next week in the office. ASHLEY / CHIN: [id number] /
[2018-11-29] MEDS ORDERED: NON-FORMULARY DRUG (Biotin [Biotin] 5 MG) PO SCH (09:00)
[2018-11-29] MEDS ORDERED: ISOSORBIDE MONONITRATE ER 30 MG TAB.ER.24H PO SCH (09:00)
[2018-11-29] MEDS ORDERED: VIT A,C & E-LUTEIN-MINERALS 1 EACH TAB PO SCH (09:00)
[2018-11-29] MEDS ORDERED: CLOPIDOGREL 75 MG TAB PO SCH (09:00)
[2018-11-29] MEDS ORDERED: MECLIZINE 12.5 MG TAB PO SCH (09:00)
[2018-11-29] MEDS ORDERED: NON-FORMULARY DRUG (Ubidecarenone [Co Q-10] 100 MG) PO SCH (09:00)
[2018-11-29] MEDS ORDERED: CHOLECALCIFEROL 1,000 UNIT TAB PO SCH (09:00)
[2018-11-29] MEDS ORDERED: MONTELUKAST 10 MG TAB PO SCH (09:00)
[2018-11-29] MEDS ORDERED: ATORVASTATIN 20 MG TAB PO SCH (21:00)
--- NOTE | 2018-11-30 09:14 | IR ---
EXAMINATION TYPE: IR tours captain femoral popliteal DATE OF EXAM: 11/28/2018 COMPARISON: NONE HISTORY: Fluoroscopy time. Fluoroscopy was provided to the referring clinician.
== END 2018-11-29 10:39 | disposition home or self-care (01) ==
LOC: CATHCVL 09:01 → 3SCARD 12:03 → CATHCVL 11-29 10:39
PROVIDERS: ATTEND Internal Medicine Interventional Cardiology
DX: I70.213 Atherosclerosis of native arteries of extremities with intermittent claudication, bilateral legs (principal); I48.0 Paroxysmal atrial fibrillation; I25.10 Atherosclerotic heart disease of native coronary artery without angina pectoris; I10 Essential (primary) hypertension; E78.5 Hyperlipidemia, unspecified; F17.210 Nicotine dependence, cigarettes, uncomplicated; E11.9 Type 2 diabetes mellitus without complications; Z95.0 Presence of cardiac pacemaker; Z95.5 Presence of coronary angioplasty implant and graft; Z79.4 Long term (current) use of insulin; Z79.899 Other long term (current) drug therapy; Z88.5 Allergy status to narcotic agent; Z88.7 Allergy status to serum and vaccine; Z88.8 Allergy status to other drugs, medicaments and biological substances; Z82.49 Family history of ischemic heart disease and other diseases of the circulatory system; Z79.01 Long term (current) use of anticoagulants; Z79.02 Long term (current) use of antithrombotics/antiplatelets
CPT/HCPCS: 80048 ×2; 85025 ×2; 85610; 37225; 37252; J2001; J3010; J1644; Q9966; J2250

== ENCOUNTER 2018-12-24 22:23 | Emergency (ER) | payer MEDICARE, BC ==
[2018-12-24] MEDS ORDERED: OXYMETAZOLINE 0.05% NASL SPRAY 1 SPRAY BOTTLE NASAL STA (23:27)
[2018-12-25 00:46] LABS: Basophils % (A) 0 %; Eosinophils # (A) 0.2 k/uL (0-0.7); Eosinophils % (A) 2 %; HCT 34.2 % (34.0-46.0); HGB 11.2 gm/dL (11.4-16.0); Lymphocytes # (A) 1.2 k/uL (1.0-4.8); Lymphocytes % (A) 17 %; MCH 30.9 pg (25.0-35.0); MCHC 32.8 g/dL (31.0-37.0); MCV 94.2 fL (80.0-100.0); Monocytes # (A) 0.4 k/uL (0-1.0); Monocytes % (A) 6 %; Neutrophils # (A) 5.5 k/uL (1.3-7.7); Neutrophils % (A) 74 %; Platelet Count 247 k/uL (150-450); RBC 3.64 m/uL (3.80-5.40); WBC 7.5 k/uL (3.8-10.6)
--- NOTE | 2018-12-25 00:50 | ED ---
General Adult HPI - General Chief complaint: ENT Stated complaint: Nosebleed Time Seen by Provider: 12/24/18 23:13 Source: patient, RN notes reviewed, old records reviewed Mode of arrival: wheelchair Limitations: no limitations - History of Present Illness Initial comments: 78-year-old female patient visiting chief complaint of right anterior epistaxis. Patient reports has been going on for approximately 2 hours waxing and waning. Patient did have a nosebleed earlier in the day. Patient does take warfarin. Denies any headache, denies any changes in vision, denies any bleeding from any other places. Denies any other complaints at this time. Systemic: Pt denies fatigue, fever/chills, rash. Pt denies weakness, night sweats, weight loss. Neuro: Pt denies headache, visual disturbances, syncope or pre-syncope. HEENT: Pt denies ocular discharge or irritation, otalgia, rhinorrhea, pharyngitis or notable lymphadenopathy. Cardiopulmonary: Pt denies chest pain, SOB, heart palpitations, dyspnea on exertion. Abdominal/GI: Pt denies abdominal pain, n/v/d. : Pt denies dysuria, burning w/ urination, frequency/urgency. Denies new onset urinary or bowel incontinence. MSK: Pt denies myalgia, loss of strength or function in extremities. Neuro: Pt denies new onset weakness, paresthesias. - Related Data Home Medications Medication Instructions Recorded Confirmed Atorvastatin Calcium [Lipitor] 20 mg PO SUMOTUTHFRSA 07/15/14 11/28/18 Montelukast [Singulair] 10 mg PO DAILY 07/15/14 11/28/18 Nortriptyline HCl [Pamelor] 10 mg PO BID 07/15/14 11/28/18 [place]-3 Fatty Acids/Fish Oil [Fish 1 cap PO BID 07/15/14 11/28/18 Oil 1,000 mg Softgel] Isosorbide Mononitrate [Isosorbide 30 mg PO DAILY 08/07/18 11/28/18 Mononitrate ER] Metoprolol Tartrate [Lopressor] 50 mg PO BID 08/07/18 11/28/18 Insulin NPH Hum/Reg Insulin Hm 20 - 25 unit SQ HS 09/25/18 11/28/18 [NovoLIN 70-30 100 UNIT/ML VIAL] Insulin NPH Hum/Reg Insulin Hm 50 - 60 unit SQ QAM 09/25/18 11/28/18 [NovoLIN 70-30 100 UNIT/ML VIAL] Biotin 5 mg PO DAILY 11/22/18 11/28/18 Cholecalciferol [Vitamin D3 (25 1,000 unit PO DAILY 11/22/18 11/28/18 Mcg = 1000 Iu)] Gabapentin [Neurontin] 100 mg PO HS 11/22/18 11/28/18 Meclizine [Antivert] 12.5 mg PO DAILY 11/22/18 11/28/18 Ubidecarenone [Co Q-10] 100 mg PO DAILY 11/22/18 11/28/18 Vits A,C,E/Lutein/Minerals 1 tab PO DAILY 11/22/18 11/28/18 [Ocuvite with Lutein Tablet] Previous Rx's Medication Instructions Recorded Clopidogrel [Plavix] 75 mg PO DAILY #90 tab 09/27/18 Aspirin 81 mg PO DAILY #30 chewable 11/29/18 Allergies Allergy/AdvReac Type Severity Reaction Status Date / Time Tetanus Vaccines and Toxoid Allergy Unknown Verified 12/24/18 22:50 [Tetanus Vaccines & Toxoid] Childhood hydromorphone HCl AdvReac Hallucinati Verified 12/24/18 22:50 [From Dilaudid] ons Review of Systems ROS Statement: Those systems with pertinent positive or pertinent negative responses have been documented in the HPI. ROS Other: All systems not noted in ROS Statement are negative. Past Medical History Past Medical History: Chest Pain / Angina, CVA/TIA, Diabetes Mellitus, Eye Disorder, GERD/Reflux, Hearing Disorder / Deafness, Hyperlipidemia, Hypertensio n, Myocardial Infarction ([place]), Osteoarthritis (OA), Vascular Disorder Additional Past Medical History / Comment(s): TIA @age of 49-no residual effects, macular degeneration, incont of urine Last Myocardial Infarction Date:: History of Any Multi-Drug Resistant Organisms: None Reported Past Surgical History: Heart Catheterization With Stent, Hysterectomy, Joint Replacement, Orthopedic Surgery, Pacemaker Additional Past Surgical History / Comment(s): BILAT knee replacements, partial thyroid removed. vein stripping on left leg, LT torn ROTATOR cuff REPAIR, left hand surgery, surgery to repair ruptured artery during heart cath., recent aortogram, 11/28/2018-(L) SFA angioplasty Past Anesthesia/Blood Transfusion Reactions: No Reported Reaction Date of Last Stent Placement:: 2010 Type of Cardiac Device: Biventricular Pacemaker Device Placement Date:: 2011 Past Psychological History: No Psychological Hx Reported Smoking Status: Never smoker Past Alcohol Use History: None Reported Past Drug Use History: None Reported - Past Family History Sister(s) Family Medical History: Cancer Additional Family Medical History / Comment(s): lung CA Father Family Medical History: Myocardial Infarction ([place]) Mother Family Medical History: Congestive Heart Failure (CHF) General Exam - General Exam Comments Initial Comments: Constitutional: NAD, AOX3, Pt has pleasant affect. HEENT: NC/AT, trachea midline, neck supple, no lymphadenopathy. Posterior pharynx non erythematous, without exudates. External ears appear normal, without discharge. Mucous membranes moist. Eyes PERRLA, EOM intact. There is no scleral icterus. No pallor noted. Dried blood noted in right nare. Cardiopulmonary: RRR, no murmurs, rubs or gallops, no JVD noted. Lungs CTAB in anterior and posterior woodard. No peripheral edema. Abdominal exam: Abdomen soft and non-distended. Abdomen non-tender to palpation in all 4 quadrants. Bowel sounds active in LLQ. No hepatosplenomegaly. No ecch ymosis Neuro: CN II-XII grossly intact. No nuchal rigidity. No raccon eyes, no shelton sign, no hemotympanum. No cervical spinal tenderness. MSK: No posterior calf tenderness bilaterally, homans sign negative bilaterally. Posterior tibialis and radial pulse +2 bilaterally. Sensation intact in upper and lower extremities. Full active ROM in upper and lower extremities, 5/5 stregnth. No rash, no petechiae. Limitations: no limitations Course Vital Signs 12/24/18 22:46 Temperature 98.1 F Pulse Rate 58 L Respiratory 18 Rate Blood Pressure 119/51 O2 Sat by Pulse 98 Oximetry Medical Decision Making - Medical Decision Making 78-year-old female patient presents to ED chief complaint of right anterior epistaxis. Patient will signs stable, afebrile. Physical exam displayed a blood noted in right DAVID. Patient administered Afrin, nasal clamp resolved epistaxis. Correlation studies were checked as patient is on Coumadin. INR 3.0. CMP did display a mildly elevated creatinine SOLAR PANEL INSTALLER. Patient advised to give lots of fluids, will follow up with primary care provider for recheck. Case discussed with Dr. Marina. - Lab Data Result diagrams: 12/25/18 00:11 12/25/18 00:11 Lab Results 12/25/18 12/25/18 12/25/18 Range/Units 00:11 00:11 00:11 WBC 7.5 (3.8-10.6) k/uL RBC 3.64 L (3.80-5.40) m/uL Hgb 11.2 L (11.4-16.0) gm/dL Hct 34.2 (34.0-46.0) % MCV 94.2 (80.0-100.0) fL MCH 30.9 (25.0-35.0) pg MCHC 32.8 (31.0-37.0) g/dL RDW 14.0 (11.5-15.5) % Plt Count 247 (150-450) k/uL Neutrophils % 74 % Lymphocytes % 17 % Monocytes % 6 % Eosinophils % 2 % Basophils % 0 % Neutrophils # 5.5 (1.3-7.7) k/uL Lymphocytes # 1.2 (1.0-4.8) k/uL Monocytes # 0.4 (0-1.0) k/uL Eosinophils # 0.2 (0-0.7) k/uL Basophils # 0.0 (0-0.2) k/uL PT 28.5 H (9.0-12.0) sec INR 3.0 H (<1.2) APTT 37.2 H (22.0-30.0) sec Sodium 139 (137-145) mmol/L Potassium 5.1 (3.5-5.1) mmol/L Chloride 106 (98-107) mmol/L Carbon Dioxide 26 (22-30) mmol/L Anion Gap 7 mmol/L BUN 49 H (7-17) mg/dL Creatinine 1.18 H (0.52-1.04) mg/dL Est GFR (CKD-EPI)AfAm 51 (>60 ml/min/1.73 sqM) Est GFR (CKD-EPI)NonAf 44 (>60 ml/min/1.73 sqM) Glucose 150 H (74-99) mg/dL Calcium 9.2 (8.4-10.2) mg/dL Total Bilirubin 0.2 (0.2-1.3) mg/dL AST 19 (14-36) U/L ALT 18 (9-52) U/L Alkaline Phosphatase 64 (38-126) U/L Total Protein 6.1 L (6.3-8.2) g/dL Albumin 3.7 (3.5-5.0) g/dL Disposition Clinical Impression: Anterior epistaxis Disposition: HOME SELF-CARE Condition: Stable Instructions (If sedation given, give patient instructions): Nosebleed (ED) Additional Instructions: Patient to adhere to previously discussed treatment plan and will take medication(s) as directed. Patient to follow up with PCP in 1-2 days. Patient to return to ED if symptoms do not improve. Follow-up with primary care provider tomorrow. Return to ER if condition worsens. Is patient prescribed a controlled substance at d/c from ED?: No Referrals: Kiet Taveras MD [Primary Care Provider] - 1-2 days
[2018-12-25 01:02] LABS: Albumin 3.7 g/dL (3.5-5.0); Calcium 9.2 mg/dL (8.4-10.2); Partial Thromboplastin Time 37.2 sec (22.0-30.0); Potassium 5.1 mmol/L (3.5-5.1); Prothrombin Time 28.5 sec (9.0-12.0); Total Bilirubin 0.2 mg/dL (0.2-1.3); Total Protein 6.1 g/dL (6.3-8.2)
[2018-12-25 02:10] VITALS: BP 144/73; PULSE 65; RESP 17; TEMP 97.9
== END 2018-12-25 02:08 | disposition home or self-care (01) ==
LOC: EC 22:23
DX: R04.0 Epistaxis (principal); R79.89 Other specified abnormal findings of blood chemistry; E11.9 Type 2 diabetes mellitus without complications; E78.5 Hyperlipidemia, unspecified; I10 Essential (primary) hypertension; H91.90 Unspecified hearing loss, unspecified ear; I25.2 Old myocardial infarction; M19.90 Unspecified osteoarthritis, unspecified site; Z88.5 Allergy status to narcotic agent; Z88.7 Allergy status to serum and vaccine; Z79.01 Long term (current) use of anticoagulants; Z79.4 Long term (current) use of insulin; Z79.899 Other long term (current) drug therapy; Z86.73 Personal history of transient ischemic attack (TIA), and cerebral infarction without residual deficits; Z95.5 Presence of coronary angioplasty implant and graft; Z96.653 Presence of artificial knee joint, bilateral
CPT/HCPCS: 30901; 36415; 80053; 85025; 85610; 85730; 99284

== ENCOUNTER 2020-08-18 20:29 | Observation (INO) | payer MEDICARE, BC ==
--- NOTE | 2020-08-18 21:08 | ED ---
General Adult HPI - General Source: patient Mode of arrival: EMS Limitations: no limitations <Derek Burt - Last Filed: 08/18/20 23:34> <Jose Armando Islas - Last Filed: 08/19/20 02:04> - General Chief complaint: Arrhythmia/Palpitations Stated complaint: Palpitations Time Seen by Provider: 08/18/20 20:42 - History of Present Illness Initial comments: Patient presents the ED by ambulance complaining of having intermittent left upper arm pain for the past week or so. Patient states that she has a pacemake r, and she has also had intermittent palpitations over the past week or so. Patient states that she had an appointment scheduled to see her dental sales representative (Dr. Black), but she missed her appointment due to emergency. Patient denies having any other symptoms or complaints. Patient denies trauma or injury, fever or chills, headache, focal numbness/weakness/neuro deficit, chest pain or pressure, neck/jaw/back pain, dyspnea, cough or cold symptoms, dizziness, syncope, abdominal pain, nausea/vomiting/diarrhea, dysuria or urinary symptoms, leg or calf swelling or pain, or any other symptoms or complaints. (Derek Burt) - Related Data Home Medications Medication Instructions Recorded Confirmed Atorvastatin Calcium [Lipitor] 20 mg PO HS 07/15/14 08/18/20 Montelukast [Singulair] 10 mg PO DAILY 07/15/14 08/18/20 Nortriptyline HCl [Pamelor] 10 mg PO BID 07/15/14 08/18/20 [place]-3 Fatty Acids/Fish Oil [Fish 1 cap PO BID 07/15/14 08/18/20 Oil 1,000 mg Softgel] Isosorbide Mononitrate [Isosorbide 30 mg PO DAILY 08/07/18 08/18/20 Mononitrate ER] Metoprolol Tartrate [Lopressor] 50 mg PO BID 08/07/18 08/18/20 Insulin NPH Hum/Reg Insulin Hm 20 - 34 unit SQ HS 09/25/18 08/18/20 [NovoLIN 70-30 100 UNIT/ML VIAL] Insulin NPH Hum/Reg Insulin Hm 50 - 60 unit SQ QAM 09/25/18 08/18/20 [NovoLIN 70-30 100 UNIT/ML VIAL] Cholecalciferol [Vitamin D3 (25 1,000 unit PO DAILY 11/22/18 08/18/20 Mcg = 1000 Iu)] Ubidecarenone [Co Q-10] 100 mg PO HS 11/22/18 08/18/20 Vits A,C,E/Lutein/Minerals 1 tab PO DAILY 11/22/18 08/18/20 [Ocuvite with Lutein Tablet] Apixaban [Eliquis] 5 mg PO BID 08/18/20 08/18/20 Furosemide [Lasix] 40 mg PO DAILY 08/18/20 08/18/20 Gabapentin [Neurontin] 300 mg PO BID 08/18/20 08/18/20 metFORMIN HCL [Glucophage] 1,000 mg PO DAILY 08/18/20 08/18/20 metFORMIN HCL [Glucophage] 500 mg PO HS 08/18/20 08/18/20 Allergies Allergy/AdvReac Type Severity Reaction Status Date / Time Tetanus Vaccines and Toxoid Allergy Unknown Verified 08/18/20 22:52 [Tetanus Vaccines & Toxoid] Childhood hydromorphone HCl AdvReac Hallucinati Verified 08/18/20 22:52 [From Dilaudid] ons Review of Systems ROS Other: All systems not noted in ROS Statement are negative. <Derek Burt - Last Filed: 08/18/20 23:34> ROS Other: All systems not noted in ROS Statement are negative. <Jose Armando Islas - Last Filed: 08/19/20 02:04> ROS Statement: Those systems with pertinent positive or pertinent negative responses have been documented in the HPI. Past Medical History Past Medical History: Chest Pain / Angina, CVA/TIA, Diabetes Mellitus, Eye Disorder, GERD/Reflux, Hearing Disorder / Deafness, Hyperlipidemia, Hypertension, Myocardial Infarction ([place]), Osteoarthritis (OA), Vascular Disorder Additional Past Medical History / Comment(s): TIA @age of 49-no residual effects, macular degeneration, incont of urine Last Myocardial Infarction Date:: History of Any Multi-Drug Resistant Organisms: None Reported Past Surgical History: Heart Catheterization With Stent, Hysterectomy, Joint Replacement, Orthopedic Surgery, Pacemaker Additional Past Surgical History / Comment(s): BILAT knee replacements, partial thyroid removed. vein stripping on left leg, LT torn ROTATOR cuff REPAIR, left hand surgery, surgery to repair ruptured artery during heart cath., recent aortogram, 11/28/2018-(L) SFA angioplasty Past Anesthesia/Blood Transfusion Reactions: No Reported Reaction Date of Last Stent Placement:: 2010 Type of Cardiac Device: Biventricular Pacemaker Device Placement Date:: 2011 Past Psychological History: No Psychological Hx Reported Smoking Status: Former smoker Past Alcohol Use History: None Reported Past Drug Use History: None Reported - Past Family History Sister(s) Family Medical History: Cancer Additional Family Medical History / Comment(s): lung CA Father Family Medical History: Myocardial Infarction ([place]) Mother Family Medical History: Congestive Heart Failure (CHF) <Derek Burt - Last Filed: 08/18/20 23:34> General Exam Limitations: no limitations General appearance: alert, in no apparent distress Head exam: Present: atraumatic, normocephalic Eye exam: Present: normal appearance, EOMI ENT exam: Present: mucous membranes moist Neck exam: Present: other (Trachea is in midline). Absent: tenderness Respiratory exam: Present: normal lung sounds bilaterally. Absent: respiratory distress, wheezes, rales, rhonchi, stridor Cardiovascular Exam: Present: regular rate, normal rhythm, normal heart sounds, other (Normal radial pulses bilaterally) GI/Abdominal exam: Present: soft. Absent: distended, tenderness, guarding Extremities exam: Present: other (Negative Homans sign bilaterally). Absent: tenderness, pedal edema, calf tenderness Neurological exam: Present: alert, oriented X3. Absent: motor sensory deficit Psychiatric exam: Present: normal affect, normal mood Skin exam: Present: warm, dry, intact, normal color <Derek Burt - Last Filed: 08/18/20 23:34> General appearance: alert, in no apparent distress Head exam: Present: atraumatic, normocephalic, normal inspection Eye exam: Present: normal appearance, PERRL, EOMI. Absent: scleral icterus, conjunctival injection, periorbital swelling ENT exam: Present: normal exam, mucous membranes moist Neck exam: Present: normal inspection. Absent: tenderness, meningismus, lymphadenopathy Respiratory exam: Present: normal lung sounds bilaterally. Absent: respiratory distress, wheezes, rales, rhonchi, stridor Cardiovascular Exam: Present: bradycardia, normal heart sounds. Absent: systolic murmur, diastolic murmur, rubs, gallop, clicks GI/Abdominal exam: Present: soft, normal bowel sounds. Absent: distended, tenderness, guarding, rebound, rigid Extremities exam: Present: normal inspection, full ROM, normal capillary refill. Absent: tenderness, pedal edema, joint swelling, calf tenderness Back exam: Present: normal inspection Neurological exam: Present: alert, oriented X3, CN II-XII intact Psychiatric exam: Present: normal affect, normal mood Skin exam: Present: warm, dry, intact, normal color. Absent: rash <Jose Armando Islas - Last Filed: 08/19/20 02:04> Course <Derek Burt - Last Filed: 08/18/20 23:34> <Jose Armando Islas - Last Filed: 08/19/20 02:04> Vital Signs 08/18/20 08/18/20 08/18/20 20:40 22:10 23:00 Temperature 97.8 F Pulse Rate 57 L 59 L 50 L Respiratory 18 18 18 Rate Blood Pressure 147/81 175/69 136/69 O2 Sat by Pulse 99 99 99 Oximetry 08/19/20 00:00 Temperature Pulse Rate 50 L Respiratory 18 Rate Blood Pressure 155/64 O2 Sat by Pulse 95 Oximetry - Reevaluation(s) Reevaluation #1: 08/18/20 23:34 Patient was endorsed to Dr. Islas (secondary to end of my shift) with her pacemaker interrogation still pending. Dr. Islas to follow up on the patient's pacemaker interrogation report and to take over care of the patient at this time. (Derek Burt) Reevaluation #2: 08/19/20 02:04 Medical record is reviewed (Jose Armando Islas) Reevaluation #3: 08/19/20 02:04 Patient interrogation his been sent and will be received (Jose Armando Islas) Reevaluation #4: 08/19/20 02:04 Patient is informed results questions have been answered (Jose Armando Islas) - Consultations Consultation #1: Spoke with Dr. Taveras who we can admit (Jose Armando Islas) EKG Findings - EKG Comments: EKG Findings:: Atrial paced rhythm, ventricular rate of 61 bpm, right bundle branch block, QRS duration of 146 ms, normal QT interval, no significant change when compared to 11/22/2018 EKG <Derek Burt - Last Filed: 08/18/20 23:34> Medical Decision Making - Lab Data Result diagrams: 08/18/20 21:02 08/18/20 21:02 - Radiology Data Radiology results: report reviewed (Chest x-ray: No active cardiopulmonary disease, normal heart, no change) <Derek Burt - Last Filed: 08/18/20 23:34> - Lab Data Result diagrams: 08/18/20 21:02 08/18/20 21:02 <Jose Armando Islas - Last Filed: 08/19/20 02:04> - Medical Decision Making Patient's chest x-ray and labs are fairly unremarkable, including a negative troponin. Awaiting pacemaker interrogation at this time. (Derek Burt) 80 female DF for evaluation patient will be admitted for further evaluation patient interrogation remains bradycardic here in the emergency department (Jose Armando Islas) - Lab Data Lab Results 08/18/20 08/18/20 08/18/20 Range/Units 21:02 21:02 21:02 WBC 6.0 (3.8-10.6) k/uL RBC 4.18 (3.80-5.40) m/uL Hgb 12.8 (11.4-16.0) gm/dL Hct 38.7 (34.0-46.0) % MCV 92.6 (80.0-100.0) fL MCH 30.7 (25.0-35.0) pg MCHC 33.1 (31.0-37.0) g/dL RDW 13.4 (11.5-15.5) % Plt Count 152 (150-450) k/uL MPV 9.0 Neutrophils % 69 % Lymphocytes % 18 % Monocytes % 7 % Eosinophils % 3 % Basophils % 1 % Neutrophils # 4.1 (1.3-7.7) k/uL Lymphocytes # 1.1 (1.0-4.8) k/uL Monocytes # 0.4 (0-1.0) k/uL Eosinophils # 0.2 (0-0.7) k/uL Basophils # 0.1 (0-0.2) k/uL PT 10.5 (9.0-12.0) sec INR 1.0 (<1.2) APTT 19.0 L (22.0-30.0) sec Sodium 137 (137-145) mmol/L Potassium 4.4 (3.5-5.1) mmol/L Chloride 101 (98-107) mmol/L Carbon Dioxide 28 (22-30) mmol/L Anion Gap 8 mmol/L BUN 33 H (7-17) mg/dL Creatinine 0.96 (0.52-1.04) mg/dL Est GFR (CKD-EPI)AfAm 64 (>60 ml/min/1.73 sqM) Est GFR (CKD-EPI)NonAf 56 (>60 ml/min/1.73 sqM) Glucose 202 H (74-99) mg/dL Calcium 9.7 (8.4-10.2) mg/dL Magnesium 1.8 (1.6-2.3) mg/dL Total Bilirubin 0.4 (0.2-1.3) mg/dL AST 20 (14-36) U/L ALT 12 (4-34) U/L Alkaline Phosphatase 80 (38-126) U/L Troponin I (0.000-0.034) ng/mL NT-Pro-B Natriuret Pep pg/mL Total Protein 6.6 (6.3-8.2) g/dL Albumin 4.1 (3.5-5.0) g/dL 08/18/20 08/18/20 Range/Units 21:02 21:02 WBC (3.8-10.6) k/uL RBC (3.80-5.40) m/uL Hgb (11.4-16.0) gm/dL Hct (34.0-46.0) % MCV (80.0-100.0) fL MCH (25.0-35.0) pg MCHC (31.0-37.0) g/dL RDW (11.5-15.5) % Plt Count (150-450) k/uL MPV Neutrophils % % Lymphocytes % % Monocytes % % Eosinophils % % Basophils % % Neutrophils # (1.3-7.7) k/uL Lymphocytes # (1.0-4.8) k/uL Monocytes # (0-1.0) k/uL Eosinophils # (0-0.7) k/uL Basophils # (0-0.2) k/uL PT (9.0-12.0) sec INR (<1.2) APTT (22.0-30.0) sec Sodium (137-145) mmol/L Potassium (3.5-5.1) mmol/L Chloride (98-107) mmol/L Carbon Dioxide (22-30) mmol/L Anion Gap mmol/L BUN (7-17) mg/dL Creatinine (0.52-1.04) mg/dL Est GFR (CKD-EPI)AfAm (>60 ml/min/1.73 sqM) Est GFR (CKD-EPI)NonAf (>60 ml/min/1.73 sqM) Glucose (74-99) mg/dL Calcium (8.4-10.2) mg/dL Magnesium (1.6-2.3) mg/dL Total Bilirubin (0.2-1.3) mg/dL AST (14-36) U/L ALT (4-34) U/L Alkaline Phosphatase (38-126) U/L Troponin I <0.012 (0.000-0.034) ng/mL NT-Pro-B Natriuret Pep 1190 pg/mL Total Protein (6.3-8.2) g/dL Albumin (3.5-5.0) g/dL Disposition <Derek Burt - Last Filed: 08/18/20 23:34> Is patient prescribed a controlled substance at d/c from ED?: No <Jose Armando Islas - Last Filed: 08/19/20 02:04> Clinical Impression: Palpitations, Arm pain, Bradycardia, Chest pain Disposition: ADMITTED IP TO THIS HOSP Condition: Fair
[2020-08-18 21:15] LABS: Basophils # (A) 0.1 k/uL (0-0.2); Basophils % (A) 1 %; Eosinophils # (A) 0.2 k/uL (0-0.7); Eosinophils % (A) 3 %; HCT 38.7 % (34.0-46.0); HGB 12.8 gm/dL (11.4-16.0); Lymphocytes # (A) 1.1 k/uL (1.0-4.8); Lymphocytes % (A) 18 %; MCH 30.7 pg (25.0-35.0); MCHC 33.1 g/dL (31.0-37.0); MCV 92.6 fL (80.0-100.0); Monocytes # (A) 0.4 k/uL (0-1.0); Monocytes % (A) 7 %; Neutrophils # (A) 4.1 k/uL (1.3-7.7); Neutrophils % (A) 69 %; Platelet Count 152 k/uL (150-450); RBC 4.18 m/uL (3.80-5.40); RDW 13.4 % (11.5-15.5)
[2020-08-18 21:22] LABS: Albumin 4.1 g/dL (3.5-5.0); Calcium 9.7 mg/dL (8.4-10.2); Magnesium 1.8 mg/dL (1.6-2.3); Potassium 4.4 mmol/L (3.5-5.1); Total Bilirubin 0.4 mg/dL (0.2-1.3); Total Protein 6.6 g/dL (6.3-8.2)
[2020-08-18 21:30] LABS: Prothrombin Time 10.5 sec (9.0-12.0)
--- NOTE | 2020-08-18 22:22 | XR ---
EXAMINATION TYPE: XR chest 2V DATE OF EXAM: 08/18/2020 COMPARISON: 11/22/2018 HISTORY: Dysrhythmia TECHNIQUE: FINDINGS: There is no heart failure nor confluent pneumonic infiltrate. Costophrenic angles are clear . There is left axillary pacemaker. There are no hilar masses. Thoracic aorta is atheromatous. There is no pleural effusion. Bony thorax is intact. IMPRESSION: No active cardiopulmonary disease. Normal heart. No change.
[2020-08-19] MEDS ORDERED: NITROGLYCERIN SL TABS 0.4 MG TAB SUBLINGUAL PRN (01:37)
[2020-08-19 06:56] VITALS: TEMP 97.6
[2020-08-19 08:51] VITALS: BP 168/71; PULSE 51; RESP 16
[2020-08-19 08:53] LABS: Glucose,Whole Blood 96 mg/dL (75-99)
[2020-08-19] MEDS ORDERED: metFORMIN 500 MG TAB PO SCH ×2 (09:00→21:00)
[2020-08-19] MEDS ORDERED: FUROSEMIDE 40 MG TAB PO SCH (09:00)
[2020-08-19] MEDS ORDERED: GABAPENTIN 300 MG CAP PO SCH (09:00)
[2020-08-19] MEDS ORDERED: INSULN ASP PRT/INSULIN ASPART 100 UNIT/ML 10 ML VIAL SQ SCH ×2 (09:00→21:00)
[2020-08-19] MEDS ORDERED: NORTRIPTYLINE 10 MG CAP PO SCH (09:00)
[2020-08-19] MEDS ORDERED: ISOSORBIDE MONONITRATE ER 30 MG TAB.ER.24H PO SCH (09:00)
[2020-08-19] MEDS ORDERED: MONTELUKAST 10 MG TAB PO SCH (09:00)
[2020-08-19] MEDS ORDERED: APIXABAN 5 MG TAB PO SCH (09:00)
[2020-08-19] MEDS ORDERED: METOPROLOL TARTRATE 50 MG TAB PO SCH ×2 (09:28→21:00)
--- NOTE | 2020-08-19 11:43 | P.HPIM ---
History of Present Illness H&P Date: 08/19/20 HISTORY AND PHYSICAL AND DISCHARGE SUMMARY: HISTORY OF PRESENT ILLNESS This is an 80-year-old female patient of Dr. Taveras and Dr. Black with past medical history of TIA, diabetes mellitus type 2, gastroesophageal reflux disease, hypertension, hyperlipidemia, coronary artery disease with prior stenting of the LAD in 2000, paroxysmal atrial fibrillation on long-term anticoagulation with eliquis, biventricular pacemaker, history of peripheral vascular disease status post balloon angioplasty of the left SFA, remote history of tobacco use. Patient complaints of pain in the left upper arm from her elbow to her shoulder is undergoing on for about a week. She also noted 2 days ago that she was having a fluttering in her chest. She denies having any chest pain. No shortness of breath. No lightheadedness or dizziness. Patient presented to [facility] emergency center for evaluation. She was found to be afebrile, heart rate in the 50s, blood pressure 147/81, pulse ox 99% on room air. EKG was atrial paced rhythm at heart rate of 61, right bundle branch block.. CBC was normal. INR 1.0. Electrolytes normal. BUN 33 and creatinine 0.96. Blood sugar 202. Troponin negative 2. Coronavirus PCR not detected. ProBNP 1190. Chest x-ray showed no acute cardiopulmonary disease. Pacemaker was interrogated. Patient was placed on the observation unit and cardiology consult requested. Metoprolol placed on hold. Patient has escalated been seen by cardiology and cleared for discharge home. No change in patient's home medication list. REVIEW OF SYSTEMS Constitutional: No fever, no chills, no night sweats. No weight change. No weakness, fatigue or lethargy. No daytime sleepiness. EENT: No headache. No blurred vision or double vision, no loss of vision. No loss of Hearing, no ringing in the ears, no dizziness. No nasal drainage or congestion. No epistaxis. No sore throat. Lungs: No shortness of breath, cough, no sputum production. No wheezing. Cardiovascular: No chest pain, no lower extremity edema. Reported palpitations. No paroxysmal nocturnal dyspnea. No orthopnea. No lightheadedness or dizziness. No syncopal episodes. Abdominal: No abdominal pain. No nausea, vomiting. No diarrhea. No constipation. No bloody or tarry stools.. No loss of appetite. Genitourinary: No dysuria, increased frequency, urgency. No urinary retention. Musculoskeletal: No myalgias. No muscle weakness, no gait dysfunction, no frequent falls. No back pain. No neck pain. Reports left upper arm pain. Integumentary: No wounds, no lesions. No rash or pruritus. No unusual bruisin g. No change in hair or nails. Neurologic: No aphasia. No facial droop. No change in mentation. No head injury. No headache. No paralysis. No paresthesia. Psychiatric: No depression. No anxiety. No mood swings. Endocrine: No abnormal blood sugars. No weight change. No excessive sweating or thirst. No cold intolerance. SOCIAL HISTORY Patient was a smoker of 1ppd for 30 years and quit in 2010. Patient is nonsmoker, no marijuana, no illicit drug use. She lives at home alone, sister and [id number] live next door. 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 FAMILY HISTORY Mother at age 90 from old age. Father at age 73 from coronary artery disease. Patient has a total of 5 sisters and 3 brothers. 3 siblings have passed, one brother from leukemia, one sister from coronary artery disease and one brother from COPD. Patient has 2 sons and 1 daughter with no major medical problems. PHYSICAL EXAMINATION Gen: This is an 80-year-old female. She is resting in bed and appears to be comfortable. HEENT: Head is atraumatic, normocephalic. Pupils equal, round. Sclerae is anicteric. NECK: Supple. No JVD. No lymphadenopathy. No thyromegaly. LUNGS: Clear to auscultation. No wheezes or rhonchi. No intercostal retractions. HEART: Regular rate and rhythm. No murmur. ABDOMEN: Soft. Bowel sounds are present. No masses. No tenderness. EXTREMITIES: No pedal edema. No calf tenderness. NEUROLOGICAL: Patient is awake, alert and oriented x3. Cranial nerves 2 through 12 are grossly intact. ASSESSMENT AND PLAN 1. Palpitations and bradycardia. Pacemaker to be interrogated. Cardiology consult appreciated. Acute coronary syndrome has been ruled out. 2. Diabetes mellitus type 2. Continue metformin 1000 mg daily and 500 mg at bedtime, Novolin 7030 reduce morning dose by 25% at 37 units and continue 20 units at bedtime, NovoLog scale. 3. Coronary artery disease with prior stenting of the LAD. Continue Imdur 30 mg daily. 4. Paroxysmal atrial fibrillation. Continue eliquis 5 mg twice daily. Hold metoprolol. 5. History of biventricular pacemaker. 6. Peripheral vascular disease status post balloon angioplasty of the left SFA. Continue eliquis, atorvastatin. 7. History of TIA, no residuals. 8. Diabetic neuropathy. Continue gabapentin 300 mg twice daily. 9. Hypertension. Continue Lasix 40 mg daily, Lopressor 50 mg twice daily. 10. Hyperlipidemia. Continue Lipitor 20 mg at bedtime. 11. Recurrent depression. Continue nortriptyline 10 mg twice daily. 12. Remote history of tobacco use. Patient placed as an observation status. DISCHARGE PLAN Home Discharge Medication List Atorvastatin Calcium [Lipitor] 20 mg PO HS 07/15/14 [History] Montelukast [Singulair] 10 mg PO DAILY 07/15/14 [History] Nortriptyline HCl [Pamelor] 10 mg PO BID 07/15/14 [History] [place]-3 Fatty Acids/Fish Oil [Fish Oil 1,000 mg Softgel] 1 cap PO BID 07/15/14 [History] Isosorbide Mononitrate [Isosorbide Mononitrate ER] 30 mg PO DAILY 08/07/18 [History] Metoprolol Tartrate [Lopressor] 50 mg PO BID 08/07/18 [History] Insulin NPH Hum/Reg Insulin Hm [NovoLIN 70-30 100 UNIT/ML VIAL] 20 - 34 unit SQ HS 09/25/18 [History] Insulin NPH Hum/Reg Insulin Hm [NovoLIN 70-30 100 UNIT/ML VIAL] 50 - 60 unit SQ [facility] 09/25/18 [History] Cholecalciferol [Vitamin D3 (25 Mcg = 1000 Iu)] 1,000 unit PO DAILY 11/22/18 [History] Ubidecarenone [Co Q-10] 100 mg PO HS 11/22/18 [History] Vits A,C,E/Lutein/Minerals [Ocuvite with Lutein Tablet] 1 tab PO DAILY 11/22/18 [History] Apixaban [Eliquis] 5 mg PO BID 08/18/20 [History] Furosemide [Lasix] 40 mg PO DAILY 08/18/20 [History] Gabapentin [Neurontin] 300 mg PO BID 08/18/20 [History] metFORMIN HCL [Glucophage] 1,000 mg PO DAILY 08/18/20 [History] metFORMIN HCL [Glucophage] 500 mg PO HS 08/18/20 [History] Impression and plan of care have been directed as dictated by the signing physician. Tanna Peterson nurse practitioner acting as scribe for signing physician. Past Medical History Past Medical History: Chest Pain / Angina, CVA/TIA, Diabetes Mellitus, Eye Disorder, GERD/Reflux, Hearing Disorder / Deafness, Hyperlipidemia, Hypertension, Myocardial Infarction ([place]), Osteoarthritis ([place]), Vascular Disorder Additional Past Medical History / Comment(s): TIA @age of 49-no residual effects, macular degeneration, incont of urine Last Myocardial Infarction Date:: History of Any Multi-Drug Resistant Organisms: None Reported Past Surgical History: Heart Catheterization With Stent, Hysterectomy, Joint Replacement, Orthopedic Surgery, Pacemaker Additional Past Surgical History / Comment(s): BILAT knee replacements, partial thyroid removed. vein stripping on left leg, LT torn ROTATOR cuff REPAIR, left hand surgery, surgery to repair ruptured artery during heart cath., recent aortogram, 11/28/2018-(L) SFA angioplasty Past Anesthesia/Blood Transfusion Reactions: No Reported Reaction Date of Last Stent Placement:: 2010 Type of Cardiac Device: Biventricular Pacemaker Device Placement Date:: 2011 Past Psychological History: No Psychological Hx Reported Smoking Status: Former smoker Past Alcohol Use History: None Reported Past Drug Use History: None Reported - Past Family History Sister(s) Family Medical History: Cancer Additional Family Medical History / Comment(s): lung CA Father Family Medical History: Myocardial Infarction ([place]) Mother Family Medical History: Congestive Heart Failure (CHF) Medications and Allergies Home Medications Medication Instructions Recorded Confirmed Type Atorvastatin Calcium [Lipitor] 20 mg PO HS 07/15/14 08/18/20 History Montelukast [Singulair] 10 mg PO DAILY 07/15/14 08/18/20 History Nortriptyline HCl [Pamelor] 10 mg PO BID 07/15/14 08/18/20 History [place]-3 Fatty Acids/Fish Oil [Fish 1 cap PO BID 07/15/14 08/18/20 History Oil 1,000 mg Softgel] Isosorbide Mononitrate [Isosorbide 30 mg PO DAILY 08/07/18 08/18/20 History Mononitrate ER] Metoprolol Tartrate [Lopressor] 50 mg PO BID 08/07/18 08/18/20 History Insulin NPH Hum/Reg Insulin Hm 20 - 34 unit SQ HS 09/25/18 08/18/20 History [NovoLIN 70-30 100 UNIT/ML VIAL] Insulin NPH Hum/Reg Insulin Hm 50 - 60 unit SQ QAM 09/25/18 08/18/20 History [NovoLIN 70-30 100 UNIT/ML VIAL] Cholecalciferol [Vitamin D3 (25 1,000 unit PO DAILY 11/22/18 08/18/20 History Mcg = 1000 Iu)] Ubidecarenone [Co Q-10] 100 mg PO HS 11/22/18 08/18/20 History Vits A,C,E/Lutein/Minerals 1 tab PO DAILY 11/22/18 08/18/20 History [Ocuvite with Lutein Tablet] Apixaban [Eliquis] 5 mg PO BID 08/18/20 08/18/20 History Furosemide [Lasix] 40 mg PO DAILY 08/18/20 08/18/20 History Gabapentin [Neurontin] 300 mg PO BID 08/18/20 08/18/20 History metFORMIN HCL [Glucophage] 1,000 mg PO DAILY 08/18/20 08/18/20 History metFORMIN HCL [Glucophage] 500 mg PO HS 08/18/20 08/18/20 History Allergies Allergy/AdvReac Type Severity Reaction Status Date / Time Tetanus Vaccines and Toxoid Allergy Unknown Verified 08/18/20 22:52 [Tetanus Vaccines & Toxoid] Childhood hydromorphone HCl AdvReac Hallucinati Verified 08/18/20 22:52 [From Dilaudid] ons Physical Exam Vitals: Vital Signs Temp Pulse Resp BP Pulse Ox 08/19/20 06:00 97.6 F 61 18 178/64 98 08/19/20 05:00 50 L 18 132/55 99 08/19/20 02:34 53 L 18 152/83 99 08/19/20 02:00 49 L 18 155/71 99 08/19/20 01:00 50 L 18 156/65 99 08/19/20 00:00 50 L 18 155/64 95 08/18/20 23:00 50 L 18 136/69 99 08/18/20 22:10 59 L 18 175/69 99 08/18/20 20:40 97.8 F 57 L 18 147/81 99 Intake and Output 08/18/20 08/19/20 08/19/20 22:59 06:59 14:59 Other: Weight 1006.975 kg Results CBC & Chem 7: 08/18/20 21:02 08/18/20 21:02 Labs: Abnormal Lab Results - Last 24 Hours (Table) 08/18/20 08/18/20 Range/Units 21:02 21:02 APTT 19.0 L (22.0-30.0) sec BUN 33 H (7-17) mg/dL Glucose 202 H (74-99) mg/dL
[2020-08-19] MEDS ORDERED: INSULIN ASPART (NovoLOG) 100 UNIT/ML VIAL SQ SCH (12:30)
--- NOTE | 2020-08-19 14:43 | P.CRDCN ---
History of Present Illness Consult date: 08/19/20 History of present illness: HISTORY OF PRESENT ILLNESS: This is a 80-year-old female with a past medical history significant for CVA/TIA, diabetes mellitus, GERD, hypertension, hyperlipidemia, coronary artery disease, atrial fibrillation, and pacemaker insertion. Patient follows in the office with Dr. Black. We have been asked to see the patient in consultation for bradycardia. Patient examined at the bedside in the emergency room. Patient pr esented to the hospital with a complaint of left arm pain that started on Monday or Monday. She states the pain is on the top of her arm and is only from the elbow up. She denies having any chest pain. She does report feeling occasional palpitations. EKG reveals atrial paced rhythm. Right bundle branch block. Chest xray no active cardiopulmonary disease. Normal heart. Laboratory data: WBC 6.0. Hemoglobin 12.8. Platelet count 152. Sodium 137. Potassium 4.4. BUN 33. Creatinine 0.96. Troponin negative 3. Current home cardiac medications include Lasix 40 mg daily, metoprolol tartrate 50mg twice a day, Imdur 30 mg daily, Eliquis 5 mg twice a day, and Lipitor 20 mg daily Most recent echocardiogram obtained in 2016 reveals ejection fraction 60-65% REVIEW OF SYSTEMS: At the time of my exam: CONSTITUTIONAL: Denies fever or chills. HEENT: Denies blurred vision, vision changes, or eye pain. Denies hemoptysis CARDIOVASCULAR: Denies chest pain. Denies orthopnea. Denies PND. Denies palpitations RESPIRATORY: Denies shortness of breath. GASTROINTESTINAL: Denies abdominal pain. Denies nausea or vomiting. HEMATOLOGIC: Denies bleeding disorders. GENITOURINARY: Denies any blood in urine. SKIN: Denies pruitis. Denies rash. PHYSICAL EXAM: VITAL SIGNS: Reviewed. GENERAL: Well-developed in no acute distress. HEENT: Head is normocephalic. Pupils are equal, round. Sclerae anicteric. Mucous membranes of the mouth are moist. Neck supple. No JVD or thyromegaly LUNGS: Respirations even and unlabored. Lungs essentially clear to auscultation bilaterally. HEART: Regular rate and rhythm. S1 and S2 heard. ABDOMEN: Soft. Nondistended. Nontender. EXTREMITIES: Normal range of motion. No clubbing or cyanosis. Peripheral pulses intact. No lower extremity edema NEUROLOGIC: Awake and alert. Oriented x 3. ASSESSMENT: Left arm pain Palpitations Paroxysmal atrial fibrillation, on anticoagulation with Eliquis History of pacemaker insertion Coronary artery disease with previous PCI Peripheral vascular disease Hypertension Hyperlipidemia Diabetes mellitus PLAN: An acute coronary event has been ruled out Pacer interrogated and report reviewed. Pacemaker is functioning properly with no acute issues noted. Resume metoprolol No further recommendations from a cardiac standpoint Patient may be discharged home today Nurse practitioner note has been reviewed by physician. Signing provider agrees with the documented findings, assessment, and plan of care. Past Medical History Past Medical History: Chest Pain / Angina, CVA/TIA, Diabetes Mellitus, Eye Disorder, GERD/Reflux, Hearing Disorder / Deafness, Hyperlipidemia, Hypertension, Myocardial Infarction (ME), Osteoarthritis (OA), Vascular Disorder Additional Past Medical History / Comment(s): TIA @age of 49-no residual effects, macular degeneration, incont of urine Last Myocardial Infarction Date:: History of Any Multi-Drug Resistant Organisms: None Reported Past Surgical History: Heart Catheterization With Stent, Hysterectomy, Joint Replacement, Orthopedic Surgery, Pacemaker Additional Past Surgical History / Comment(s): BILAT knee replacements, partial thyroid removed. vein stripping on left leg, LT torn ROTATOR cuff REPAIR, left hand surgery, surgery to repair ruptured artery during heart cath., recent aortogram, 11/28/2018-(L) SFA angioplasty Past Anesthesia/Blood Transfusion Reactions: No Reported Reaction Date of Last Stent Placement:: 2010 Type of Cardiac Device: Biventricular Pacemaker Device Placement Date:: 2011 Past Psychological History: No Psychological Hx Reported Smoking Status: Former smoker Past Alcohol Use History: None Reported Past Drug Use History: None Reported - Past Family History Sister(s) Family Medical History: Cancer Additional Family Medical History / Comment(s): lung CA Father Family Medical History: Myocardial Infarction (ME) Mother Family Medical History: Congestive Heart Failure (CHF) Medications and Allergies Home Medications Medication Instructions Recorded Confirmed Type Atorvastatin Calcium [Lipitor] 20 mg PO HS 07/15/14 08/18/20 History Montelukast [Singulair] 10 mg PO DAILY 07/15/14 08/18/20 History Nortriptyline HCl [Pamelor] 10 mg PO BID 07/15/14 08/18/20 History [place]-3 Fatty Acids/Fish Oil [Fish 1 cap PO BID 07/15/14 08/18/20 History Oil 1,000 mg Softgel] Isosorbide Mononitrate [Isosorbide 30 mg PO DAILY 08/07/18 08/18/20 History Mononitrate ER] Metoprolol Tartrate [Lopressor] 50 mg PO BID 08/07/18 08/18/20 History Insulin NPH Hum/Reg Insulin Hm 20 - 34 unit SQ HS 09/25/18 08/18/20 History [NovoLIN 70-30 100 UNIT/ML VIAL] Insulin NPH Hum/Reg Insulin Hm 50 - 60 unit SQ QAM 09/25/18 08/18/20 History [NovoLIN 70-30 100 UNIT/ML VIAL] Cholecalciferol [Vitamin D3 (25 1,000 unit PO DAILY 11/22/18 08/18/20 History Mcg = 1000 Iu)] Ubidecarenone [Co Q-10] 100 mg PO HS 11/22/18 08/18/20 History Vits A,C,E/Lutein/Minerals 1 tab PO DAILY 11/22/18 08/18/20 History [Ocuvite with Lutein Tablet] Apixaban [Eliquis] 5 mg PO BID 08/18/20 08/18/20 History Furosemide [Lasix] 40 mg PO DAILY 08/18/20 08/18/20 History Gabapentin [Neurontin] 300 mg PO BID 08/18/20 08/18/20 History metFORMIN HCL [Glucophage] 1,000 mg PO DAILY 08/18/20 08/18/20 History metFORMIN HCL [Glucophage] 500 mg PO HS 08/18/20 08/18/20 History Allergies Allergy/AdvReac Type Severity Reaction Status Date / Time Tetanus Vaccines and Toxoid Allergy Unknown Verified 08/18/20 22:52 [Tetanus Vaccines & Toxoid] Childhood hydromorphone HCl AdvReac Hallucinati Verified 08/18/20 22:52 [From Dilaudid] ons Physical Exam Vitals: Vital Signs Temp Pulse Resp BP Pulse Ox 08/19/20 08:50 51 L 16 168/71 98 08/19/20 06:00 97.6 F 61 18 178/64 98 08/19/20 05:00 50 L 18 132/55 99 08/19/20 02:34 53 L 18 152/83 99 08/19/20 02:00 49 L 18 155/71 99 08/19/20 01:00 50 L 18 156/65 99 08/19/20 00:00 50 L 18 155/64 95 08/18/20 23:00 50 L 18 136/69 99 08/18/20 22:10 59 L 18 175/69 99 08/18/20 20:40 97.8 F 57 L 18 147/81 99 Intake and Output 08/18/20 08/19/20 08/19/20 22:59 06:59 14:59 Other: Weight 1006.975 kg Results 08/18/20 21:02 08/18/20 21:02 Cardiac Enzymes 08/18/20 08/18/20 08/19/20 Range/Units 21:02 21:02 03:31 AST 20 (14-36) U/L Troponin I <0.012 <0.012 (0.000-0.034) ng/mL 08/19/20 Range/Units 07:54 AST (14-36) U/L Troponin I <0.012 (0.000-0.034) ng/mL Coagulation 08/18/20 Range/Units 21:02 PT 10.5 (9.0-12.0) sec APTT 19.0 L (22.0-30.0) sec CBC 08/18/20 Range/Units 21:02 WBC 6.0 (3.8-10.6) k/uL RBC 4.18 (3.80-5.40) m/uL Hgb 12.8 (11.4-16.0) gm/dL Hct 38.7 (34.0-46.0) % Plt Count 152 (150-450) k/uL Comprehensive Metabolic Panel 08/18/20 Range/Units 21:02 Sodium 137 (137-145) mmol/L Potassium 4.4 (3.5-5.1) mmol/L Chloride 101 (98-107) mmol/L Carbon Dioxide 28 (22-30) mmol/L BUN 33 H (7-17) mg/dL Creatinine 0.96 (0.52-1.04) mg/dL Glucose 202 H (74-99) mg/dL Calcium 9.7 (8.4-10.2) mg/dL AST 20 (14-36) U/L ALT 12 (4-34) U/L Alkaline Phosphatase 80 (38-126) U/L Total Protein 6.6 (6.3-8.2) g/dL Albumin 4.1 (3.5-5.0) g/dL Intake and Output 08/18/20 08/19/20 08/19/20 22:59 06:59 14:59 Other: Weight 1006.975 kg 08/18/20 21:02 08/18/20 21:02
[2020-08-19] MEDS ORDERED: ATORVASTATIN 20 MG TAB PO SCH (21:00)
[2020-08-20] MEDS ORDERED: ASPIRIN 325 MG TAB PO SCH (09:00)
== END 2020-08-19 13:29 | disposition home or self-care (01) ==
LOC: EC 20:29 → 6NMEDSUR 08-19 01:38
PROVIDERS: ADMIT Internal Medicine Geriatric Medicine; ATTEND Internal Medicine Geriatric Medicine
DX: R00.2 Palpitations (principal); R00.1 Bradycardia, unspecified; Z95.0 Presence of cardiac pacemaker; I45.10 Unspecified right bundle-branch block; I48.0 Paroxysmal atrial fibrillation; E78.5 Hyperlipidemia, unspecified; I10 Essential (primary) hypertension; E11.40 Type 2 diabetes mellitus with diabetic neuropathy, unspecified; I25.10 Atherosclerotic heart disease of native coronary artery without angina pectoris; M79.622 Pain in left upper arm; E11.51 Type 2 diabetes mellitus with diabetic peripheral angiopathy without gangrene; H91.90 Unspecified hearing loss, unspecified ear; K21.9 Gastro-esophageal reflux disease without esophagitis; M19.90 Unspecified osteoarthritis, unspecified site; H35.30 Unspecified macular degeneration; R32 Unspecified urinary incontinence; E89.0 Postprocedural hypothyroidism; F33.9 Major depressive disorder, recurrent, unspecified; Z79.01 Long term (current) use of anticoagulants; Z79.4 Long term (current) use of insulin; Z79.899 Other long term (current) drug therapy; Z88.5 Allergy status to narcotic agent; Z88.7 Allergy status to serum and vaccine; I25.2 Old myocardial infarction; Z86.73 Personal history of transient ischemic attack (TIA), and cerebral infarction without residual deficits; Z90.710 Acquired absence of both cervix and uterus; Z95.5 Presence of coronary angioplasty implant and graft; Z95.820 Peripheral vascular angioplasty status with implants and grafts; Z96.653 Presence of artificial knee joint, bilateral; Z98.890 Other specified postprocedural states; Z87.891 Personal history of nicotine dependence; Z80.1 Family history of malignant neoplasm of trachea, bronchus and lung; Z82.49 Family history of ischemic heart disease and other diseases of the circulatory system; Z80.6 Family history of leukemia; Z82.5 Family history of asthma and other chronic lower respiratory diseases
CPT/HCPCS: 99285; 36415; 93005; 83880; 80053; 84443; 83735; 84484 ×2; 85025; 85610; 85730; 87635; 71046; G0378